=== PATIENT | male | born 1965 | race Caucasian/White ===

== ENCOUNTER 2020-05-24 17:10 | Outpatient (REF) | payer OTHER, SELFPAY ==
[2020-05-24 17:33] LABS: COVID-19 Test Positive (Negative); IDNOW Serial# 55D5AD1C
== END 2020-05-24 17:11 | disposition home or self-care (01) ==
LOC: HO.LAB 17:10
PROVIDERS: Visit Provider Internal Medicine
DX: Z20.828 Contact with and (suspected) exposure to other viral communicable diseases (principal)
CPT/HCPCS: 87635; C9803

== ENCOUNTER 2020-07-23 08:21 | Emergency (ER) | payer OTHER, SELFPAY ==
--- NOTE | 2020-07-23 08:30 | ED_ITS ---
HPI - Dental/Oral General Chief complaint: Dental/Oral Stated complaint: DENTAL PAIN Time Seen by Provider: 07/23/20 08:29 Source: patient Mode of arrival: ambulatory Limitations: no limitations History of Present Illness HPI Narrative: Left lower dental pain x 3 days. Called dentist and has appt tomorrow 8am. Thinks he cracked his tooth or filling. Denies erythema, swelling, fevers, chills. Using motrin and oragel with continued pain MD Complaint: tooth pain Related Data Previous Rx's Medication Instructions Recorded oxycodone 5 mg PO Q4H PRN #6 tab 07/23/20 Allergies Allergy/AdvReac Type Severity Reaction Status Date / Time penicillin V Allergy Unknown anaphylaxis, Verified 07/23/20 08:40 swelling Penicillins [PENICILLINS] Allergy Unknown SWELLING Unverified 02/17/20 14:47 Review of Systems Review of Systems: Yes all other systems are reviewed and are negative Constitutional: Constitutional: Reports no additional constitutional complaints, Denies body ache(s), Denies chills, Denies fever(s), Denies headache(s) and Denies weakness Eyes: Eyes: Reports no additional eye complaints and Denies change in vision ENT: Reports system reviewed and no additional complaints, except as documented, Reports dental pain, Denies dizziness, Denies headache(s), Denies nasal congestion, Denies nasal discharge and Denies neck pain Cardiovascular: Cardiovascular: Reports no additional cardiovascular compl aints, Denies chest pain, Denies leg edema and Denies dyspnea Respiratory: Respiratory: Reports no additional respiratory complaints, Denies cough and Denies dyspnea Gastrointestinal: Gastrointestinal: Reports no additional gastrointestinal complaints, Denies abdominal pain, Denies diarrhea, Denies nausea and Denies vomiting Genitourinary: Genitourinary: Denies urinary incontinence Musculoskeletal: Musculoskeletal: Reports no additional musculoskeletal complaints, Denies back pain, Denies arthralgias, Denies joint swelling, Denies neck pain, Denies numbness and Denies tingling Integumentary/Breasts: Skin/Breast: Reports system reviewed and no additional complaints, except as docu and Denies rash Neurologic: Reports system reviewed and no additional complaints, except as documented, Denies Abnormal speech present, Denies dizziness, Denies headache(s), Denies numbness, Denies tingling and Denies weakness [facility] Past Medical History Attestation statement: The following information was validated with the patient. Source: old records reviewed and nursing notes reviewed Social History Social History Advance Directives: No Advance Directives Information Provided: No Physical Exam Vital Signs: Vital Signs: Last Vital Signs Temp 98.0 F 07/23/20 08:38 Pulse 74 07/23/20 08:38 Resp 18 07/23/20 08:38 BP 168/91 H 07/23/20 08:38 Pulse Ox 97 07/23/20 08:38 Body Mass Index 36.2 Const: General: cooperative, healthy appearing, comfortable and no acute distress Orientation/consciousness: patient oriented x3 Limitations: no limitations HENMT: Head: Yes normal to inspection Ears: hearing grossly normal bilaterally General nose exam: Normal external nose present Face and sinus: Yes normal facial exam Mouth: Normal oral and palatal mucosa present Teeth image: 1. extensive caries with no surrounding fluctuance/erythema or swelling Throat: Yes posterior oropharynx normal Eyes: General: appearance normal, both eyes and all related structures Pupils: Equal, round and reactive pupils present Neck: Neck: Yes normal visual inspection Chest: Chest palpation & inspection: normal inspection of the chest Resp: Effort & Inspection: normal respiratory effort Auscultation: clear to auscultation bilaterally Cardio: Rate: regular rate Rhythm: regular rhythm Peripheral pulses: Peripheral pulses 2+ throughout GI: Inspection: Yes normal to inspection Palpation (GI): Soft to palpation and nontender Auscultation: normal bowel sounds Back/Spine/Pelvis: Thoracic/Lumbar Spine: thoracic and lumbar spine normal to inspection Skin: General skin exam: no rashes or lesions noted Neuro: General: patient oriented x3, no focal motor deficits and normal sensation to monofilament Cranial nerves: Yes Equal, round and reactive pupils present Cognition (Neuro): normal cognition Speech: No Abnormal speech present Gait exam (Neuro): Normal gait present Motor exam (neuro): 5/5 motor strength present throughout Extrem: General: Yes normal to inspection Course Course Course Narrative: 55 yo male here with dental pain with extensive caries, no abscess noted. Has appt with dental tomorrow. Will give small supply of oxycodone. Reviewed worrisome signs/symptoms with patient and when to return to ED. Comfortable with discharge home. Discharge Plan Discharge Clinical Impression: Toothache Patient Disposition: Home, Self-Care Instructions: Toothache (ED) Additional Instructions: Continue ibuprofen and topical oragel Keep appt with dentist tomorrow Prescriptions: New oxycodone 5 mg tablet 5 mg PO Q4H PRN (Reason: pain) Qty: 6 RF: 0 Referrals: Jasmeet Mariano FNP-LAW [Primary Care Provider] - 2 days Interventions: ED Discharge Assessment Last Done: 07/23/20 08:51 Discharge Date/Time: 07/23/20 08:52
[2020-07-23 08:38] VITALS: BP 168/91; PULSE 74; RESP 18; TEMP 36.7; O2SAT 97; BMI 36.2
== END 2020-07-23 08:52 | disposition home or self-care (01) ==
PROVIDERS: Emergency Provider Emergency Medicine; PCP Nurse Practitioner Family
DX: K08.89 Other specified disorders of teeth and supporting structures (principal); Z79.899 Other long term (current) drug therapy
CPT/HCPCS: 99283

== ENCOUNTER 2020-11-07 10:21 | Outpatient (REF) | payer OTHER, SELFPAY ==
[2020-11-07 11:44] LABS: Glucose Urine UA NEG (NEG); Leukocyte Esterase Urine NEG (NEG); Nitrite Urine NEG (NEG); PH 5.5 (5.0-8.0); Specific Gravity - Urine 1.025 (1.005-1.025); Urine Blood NEG (NEG); Urine Ketones NEG (NEG); Urine Protein NEG (NEG-TRACE)
[2020-11-07 11:52] LABS: Appearance Urine CLEAR; Color Urine YELLOW
[2020-11-07 12:17] LABS: RBC Urine 0-2 /HPF (0); Squamous Epithelial Cell Urine 1+ /LPF; WBC Urine 0 /HPF (0-4)
[2020-11-07 12:28] LABS: TSH reflex Free T4 0.69 uIU/mL (0.32-4.0)
[2020-11-07 12:50] LABS: Alanine Aminotransferase 12 U/L (0-40); Albumin Level 3.9 g/dL (3.5-5.0); Alkaline Phosphatase 94 U/L (39-117); Anion Gap 11 (12-20); Aspartate Amino Transferase 13 U/L (5-37); Bilirubin Total 0.8 mg/dL (0.0-1.0); Blood Urea Nitrogen 17 mg/dL (9-16); Calcium 9.2 mg/dL (8.4-10.2); Carbon Dioxide 26 mmol/L (22-29); Chloride 109 mmol/L (96-108); Cholesterol 209 mg/dL; Estimated Glomerular Filt Rate > 60; Glucose Fasting 96 mg/dL (60-99); HDL Cholesterol 40 mg/dL; LDL Cholesterol Calculated 148 mg/dl; Potassium 4.8 mmol/L (3.3-5.1); Sodium 141 mmol/L (135-145); Total Protein 6.2 g/dL (6.5-8.0); Triglycerides 105 mg/dL
[2020-11-08 07:35] LABS: SARS COV2 IgG Positive (Negative)
== END 2020-11-07 10:22 | disposition home or self-care (01) ==
LOC: HO.HMGCLDS 10:21
PROVIDERS: PCP Nurse Practitioner Family; Visit Provider Nurse Practitioner Family
DX: Z00.00 Encounter for general adult medical examination without abnormal findings (principal); Z12.5 Encounter for screening for malignant neoplasm of prostate; Z11.52 Encounter for screening for COVID-19
CPT/HCPCS: 36415; 80053; 80061; 81001; 84153; 84443; 86769

== ENCOUNTER 2022-01-30 06:11 | Day surgery (SDC) | payer OTHER, SELFPAY ==
[2022-01-24 11:30] VITALS: BMI 39.6
--- NOTE | 2022-01-29 13:41 | HO.ANESPROP2 ---
HPI - Anesthesia Eval Consult details Narrative: 56yo M for Hernia Repair Umbilical with mesh PMFSH Active Problems Active Problems: All Active Problems (Updated 11/08/21 @ 09:46 by Jasmeet Mariano [facility]) Physical exam (Acute) Screening PSA (prostate specific antigen) (Acute) Encounter for screening for COVID-19 (Acute) Umbilical hernia (Acute) Past Medical History Medical History (Updated 02/07/22 @ 09:41 by Jasmeet Aguirre MD) Arthritis of left knee Hypertension Impacted cerumen of both ears Surgical History Surgical History H/O medial meniscus repair of right knee H/O umbilical hernia repair (01/30/22) History of Achilles tendon repair History of arthroplasty of left ankle History of hand surgery History of medial meniscus repair of left knee History of tonsillectomy Social History Social History Housing: House Alcohol intake: current Alcohol intake frequency: holidays/special occasions only Patient Tobacco Use Status: Never used Tobacco e-Cigarette/Vaping Use: Never Used Second Hand Smoke Exposure: No service: Yes Current occupational status: employed Current occupation: [employer] Current occupational exposures/hazards: Yes Cognitive needs: No Hearing needs: No Vision needs: No Meds Allergies Allergy/AdvReac Type Severity Reaction Status Date / Time penicillin V Allergy Severe anaphylaxis, Verified 02/07/22 09:08 swelling Exam Exam Date and Time: January 29, 2022 1341 Height,Weight and Vital Signs: Height 6 ft 3 in Weight 143.789 kg Assessment and Plan Assessment Anesthesia Assessment: Chart Reviewed
[2022-01-30] VITALS (8 sets, daily range): BP systolic 104–146; BP diastolic 49–91; PULSE 74–85; RESP 12–16; TEMP 36.1–36.4; O2SAT 94–97; BMI 37.5
[2022-01-30] MEDS: Lactated Ringers 1,000 ML 100 ML IVCONT (06:52)
--- NOTE | 2022-01-30 07:08 | HO.ANESPROP2 ---
[facility] Active Problems Active Problems: All Active Problems (Updated 11/08/21 @ 09:46 by Jasmeet Mariano, [facility]) Physical exam (Acute) Screening PSA (prostate specific antigen) (Acute) Encounter for screening for COVID-19 (Acute) Umbilical hernia (Acute) Past Medical History Medical History Arthritis of left knee Hypertension Impacted cerumen of both ears Family History Family history of problems with anesthesia: No Surgical History Surgical History H/O medial meniscus repair of right knee History of Achilles tendon repair History of arthroplasty of left ankle History of hand surgery History of medial meniscus repair of left knee History of tonsillectomy History of Problems with Anesthesia: No Social History Social History Housing: House Alcohol intake: current Alcohol intake frequency: holidays/special occasions only Patient Tobacco Use Status: Never used Tobacco e-Cigarette/Vaping Use: Never Used Second Hand Smoke Exposure: No Use of substances other than those prescribed or required for medical reasons: No Are you DNR?: No Advance Directives: No Advance Directives Information Provided: Yes service: Yes Current occupational status: employed Current occupation: [employer] Current occupational exposures/hazards: Yes Cognitive needs: No Hearing needs: No Vision needs: No Meds Allergies Allergy/AdvReac Type Severity Reaction Status Date / Time penicillin V Allergy Severe anaphylaxis, Verified 01/24/22 10:53 swelling Active Medications: Current Medications Lactated Ringer's (Lr) 1,000 mls @ 100 mls/hr IVCONT .Q10H REPLACED BY [facility] Last Admin: 01/30/22 06:52 Dose: 100 mls/hr Vancomycin HCl (Vancomycin/Ns) 2,000 mg in 520 mls @ 260 mls/hr IV PREOP ONE Stop: 01/30/22 08:32 Last Admin: 01/30/22 06:55 Dose: 260 mls/hr Pharmacy Consult (Consult Rx Vancomycin Dosing) 1 each MISCELLANE DAILY PRN PRN Reason: Consult order Exam Exam Date and Time: January 30, 2022 0708 Height,Weight and Vital Signs: Height 6 ft 3 in Weight 136.078 kg Last Vital Signs Temp 97.5 F 01/30/22 06:35 Pulse 79 01/30/22 06:35 Resp 16 01/30/22 06:35 BP 146/91 H 01/30/22 06:35 Pulse Ox 95 01/30/22 06:35 O2 Del Method 01/30/22 06:35 Airway Mallampati Class: I TM Dist: >3cm Loose/Missing/Broken Teeth: No (Rrr) Lungs: clear Assessment and Plan Final Anesthetic Review Family History of Problems with Anesthesia: No History of Problems with Anesthesia: No NPO: Yes ASA Class: II Final Preanesthetic Review: No Changes in Pt Med Stat, Meds/Allgs Chart Reviewed, Consent Obtained/Reviewed and Anes Risks/Benef Reviewed Patient Risk: Intermediate Procedure Risk: Low Anesthetic Plan Anesthetic Plan: GA Disposition: Standard PACU
--- NOTE | 2022-01-30 07:14 | MHC.SHP ---
Pre-Procedural Eval Section A Date of Service: 01/30/22 The patient is an INPATIENT: No Changes since office visit: Yes Patient answered all questions; No Cold of Flu in the past 2 weeks, No New Medical Problems and No Changes in Medication The History & Physical has been completed within 30 days and I have reviewed it.: Yes Section B Chief Complaint: Umbilical hernia Details of Present Illness: 56-year-old male patient presenting with complaints of an umbilical hernia. 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 He does not feel that the objects were exceptionally heavy however following this he developed increased periumbilical pain. He noted increased pain with bending. He subsequently drove home and was planning on visiting the emergency department for further evaluation but by the time he returned home the pain had passed and the hernia reduced. He denies any further symptoms since this episode. He presents today to discuss possible repair of this umbilical hernia. He denies nausea, vomiting, fever, chills, diarrhea, or constipation. He denies a prior history of hernia surgery. Relevant Family History (Specify if Yes): No Relevant Social History: None Present Medications: see Short Stay Collaborative assessment Medical History: Significant History (HTN) History of Previous Operations: No relevant previous surgery Allergies: Allergies Allergy/AdvReac Type Severity Reaction Status Date / Time penicillin V Allergy Severe anaphylaxis, Verified 01/24/22 10:53 swelling Review of Systems Sugical H&P ROS: Negative: Constitution, Cardiovascular, Respiratory, Neurological, Psychiatric, Hem-Onc, Allergic/Immunologic, Gastrointestinal, Genitourinary, Musculoskeletal, Integumentary, Endocrine and Eyes/Ears/Nose/Throat Exam Surgical H&P Exam: Normal: HEENT, Normal: Heart, Normal: Lungs, Normal: Extremities, Normal: Skin and Normal: Neurological and Significant Findings: Abdomen (Palpable, reducible umbilical hernia, non-tender) Plan Diagnosis/Plan: Unchanged I have reviewed the history and physical and performed a pertinent physical examination on my patient. No changes have occurred unless specified.
--- NOTE | 2022-01-30 08:52 | W.PM.OPN ---
Operative Note Operative Note Date of Service: 01/30/22 Narrative: Preoperative diagnosis: Umbilical hernia Postoperative diagnosis: same Procedure: repair of umbilical hernia with mesh Surgeon: Jasmeet Aguirre MD Sales Executive: ROSY Au Anesthesia: general endotracheal Indications for procedure: 56-year-old male patient presenting with a painful umbilical hernia which is increasing in size with lifting and straining. On examination there is a non reducible umbilical hernia with a defect measuring approximately 3 cm. Operative findings: Umbilical hernia containing incarcerated preperitoneal. Specimen: Hernia sac Estimated blood loss: 5 mL Complications: none Procedure details: patient was brought to the OR placed in a supine position. After administering general anesthesia the patient's abdomen was prepped with ChloraPrep and draped in a sterile fashion. A surgical time-out was called the consent confirmed. Patient received preoperative antibiotics and Venodyne boots were in place. Local anesthesia consisting of 0.5% Sensorcaine was infiltrated along the inferior surface of the umbilicus in a transverse fashion. Incision was then made same location carried out through subcutaneous tissue to the hernia sac. The hernia sac was then dissected down to the fascial edge. Umbilical skin was dissected off the hernia sac the umbilicus lifted off the fascia. The sac was then dissected circumferentially down to the fascial edge. The sac was then reduced into the abdominal cavity. A preperitoneal space was then created using electrocautery. A 6.4 cm round Ventralex mesh was then obtained. This was deployed into the preperitoneal space and secured in 4 quadrants using 1 Tycron sutures. The fascia was then closed over the mesh using [id number] 1 Tycron sutures. Approximately 2 mL of Zenrelef was placed within the preperitoneal space prior to complete closure of the fascia. An additional 2 mL of Zenrelef was then applied over the fascia. Umbilical skin was secured to the fascia using a 3-0 Polysorb suture. Dermis was reapproximated using interrupted 3-0 Polysorb sutures. Skin was then closed using a running subcuticular 4-0 Polysorb suture. Steri-Strips 2 x 2 gauze and Tegaderm were then applied. The patient tolerated the procedure well. Sponge, instrument, and needle counts reported as correct. The patient was transferred to PACU in stable condition.
[2022-01-30] MEDS: Acetaminophen 325 MG TABLET 650 MG PO (09:44)
== END 2022-01-30 10:22 | disposition home or self-care (01) ==
PROVIDERS: PCP Nurse Practitioner Family; Visit Provider Surgery
PROC: (CPT 49585; principal; 2022-01-30 07:30)
DX: K42.9 Umbilical hernia without obstruction or gangrene (principal); I10 Essential (primary) hypertension; Z79.899 Other long term (current) drug therapy; Z88.0 Allergy status to penicillin; Z98.890 Other specified postprocedural states
CPT/HCPCS: 49585; 88302; C1781; C9088; J0330; J1100; J2250; J2405; J2795; J3010; J3370

== ENCOUNTER 2022-06-28 16:54 | Outpatient (REF) | payer OTHER, SELFPAY ==
--- NOTE | ~2022-06-28 | XR_ITS ---
EXAMINATION: XR KNEE, RIGHT XR KNEE STANDING, BILATERAL CLINICAL INFORMATION: Pain. COMPARISON: AP bilateral knee and right knee 01/20/2018 TECHNIQUE: AP bilateral knee standing and right knee 2 views. FINDINGS: BILATERAL KNEE, STANDING: There is mild reduction in the medial and lateral compartment joint space of both knees with chondrocalcinosis bilaterally. No bony erosive changes seen. There is mild degenerative spurring of the lateral and medial compartment right knee. RIGHT KNEE: There is moderate reduction in the patellofemoral compartment joint space with inferior patellar spurring. No abnormal joint effusion seen. Suspect loose body and a moderate-sized enthesophyte anterior to the articulating femoral condyle in the lateral view. This was not seen on the previous study. XR/XR knee standing BI IMPRESSION: 1. Degenerative arthritic changes medial and lateral compartment right knee with chondrocalcinosis. 2. Moderate degenerative changes patellofemoral compartment left knee with inferior patellar spurring. 3. Suspect large loose body in the left knee. No acute fracture or dislocation seen. 4. No joint effusion seen in either knee on the AP standing view.
--- NOTE | ~2022-06-28 | XR_ITS ---
EXAMINATION: XR KNEE, RIGHT XR KNEE STANDING, BILATERAL CLINICAL INFORMATION: Pain. COMPARISON: AP bilateral knee and right knee 01/20/2018 TECHNIQUE: AP bilateral knee standing and right knee 2 views. FINDINGS: BILATERAL KNEE, STANDING: There is mild reduction in the medial and lateral compartment joint space of both knees with chondrocalcinosis bilaterally. No bony erosive changes seen. There is mild degenerative spurring of the lateral and medial compartment right knee. RIGHT KNEE: There is moderate reduction in the patellofemoral compartment joint space with inferior patellar spurring. No abnormal joint effusion seen. Suspect loose body and a moderate-sized enthesophyte anterior to the articulating femoral condyle in the lateral view. This was not seen on the previous study. XR/XR knee RT 2V IMPRESSION: 1. Degenerative arthritic changes medial and lateral compartment right knee with chondrocalcinosis. 2. Moderate degenerative changes patellofemoral compartment left knee with inferior patellar spurring. 3. Suspect large loose body in the left knee. No acute fracture or dislocation seen. 4. No joint effusion seen in either knee on the AP standing view.
== END 2022-06-28 16:55 | disposition home or self-care (01) ==
LOC: HO.HOSX 16:54
PROVIDERS: Visit Provider Orthopaedic Surgery
DX: M17.11 Unilateral primary osteoarthritis, right knee (principal)
CPT/HCPCS: 20610; 73560; 73565; J1100

== ENCOUNTER 2022-12-24 08:04 | Outpatient (AMB) | payer OTHER, SELFPAY ==
--- NOTE | 2022-12-24 08:07 | AM.OFFWIN_ITS ---
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 Patient Tobacco Use Status: Never used Tobacco Allergies penicillin V Allergy (Severe, Verified 12/24/22 08:08) anaphylaxis, swelling Do you need a note to return to daycare/school/sports/work: No HPI HPI Comments History of Present Illness Details 57-year-old male presents with bilateral cerumen impaction. States that the right is worse than the left. He does not report any other medical concerns at this time. [facility] Medical History (Updated 12/24/22 @ 08:21 by Catarina Parker NP) Arthritis of left knee Hypertension Impacted cerumen of both ears Surgical History H/O medial meniscus repair of right knee H/O umbilical hernia repair (01/30/22) History of Achilles tendon repair History of arthroplasty of left ankle History of hand surgery History of medial meniscus repair of left knee History of tonsillectomy Social History Housing: House Alcohol intake: current Alcohol intake frequency: holidays/special occasions only Patient Tobacco Use Status: Never used Tobacco e-Cigarette/Vaping Use: Never Used Second Hand Smoke Exposure: No service: Yes Current occupational status: employed Current occupation: [employer] Current occupational exposures/hazards: Yes Cognitive needs: No Hearing needs: No Vision needs: No Review of Systems Const Details: Constitutional: No Fever, No Chills ENT/Mouth: Bilateral cerumen impaction, No Hoarseness, No sore throat Cardiovascular: No Chest Pain, No SOB Respiratory: No Cough, No Dyspnea Skin: No Skin lacerations, No rash Neuro: No Dizziness, No Headache All systems reviewed & are unremarkable except as noted in HPI and below Physical Exam Vital Signs: Last Vital Signs Pulse 80 12/24/22 08:08 BP 130/76 12/24/22 08:08 Pulse Ox 98 12/24/22 08:08 Oxygen Delivery Method Room Air 12/24/22 08:08 Appearance: Alert. Oriented X3. No acute distress. Eyes: Pupils equal, round and reactive to light. ENT: Bilateral cerumen impaction. Neck: Normal inspection. Neck supple. CVS: Normal heart rate and rhythm. Pulses normal. Respiratory: No respiratory distress. Breath sounds normal. Extremities: Gait balance and coordinated. Neuro: No motor deficit. No sensory deficit. Cranial nerves 2-12 intact. Assessment & Plan Assessment & Plan (1) Impacted cerumen of both ears: Code(s): H61.23 - Impacted cerumen, bilateral Plan 57-year-old male presents with bilateral cerumen impaction. He has no other medical concerns. Bilateral ears irrigated by MA. Cerumen disimpaction successful. Tympanic membranes bilaterally intact. Plan is to have patient use Debrox drops [id number] to help reduce recurrence of cerumen impaction. Patient verbalized understanding of discharge instructions. Verbalized understandings of signs and symptoms indicating need for emergent intervention. Patient Instructions: You were evaluated for bilateral cerumen impaction. We were able to successfully remove the earwax. Consider using Debrox drops as directed. This medication can be purchased ov [id number]. Thank you for choosing this urgent care for evaluation. Please follow-up with primary care physician as needed. Return to the emergency department for any new, concerning, or worsening symptoms. Coding Level of Care Code Est Pt Level 3 (25220) Diagnoses Impacted cerumen of both ears H61.23
[2022-12-24 08:08] VITALS: BP 130/76; PULSE 80; O2SAT 98
== END 2022-12-24 09:31 | disposition home or self-care (01) ==
PROVIDERS: PCP Nurse Practitioner Family; Visit Provider Nurse Practitioner Family
DX: H61.23 Impacted cerumen, bilateral (principal)
CPT/HCPCS: 99213

== ENCOUNTER 2023-04-03 13:20 | Outpatient (AMB) | payer OTHER, SELFPAY ==
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
[2023-04-03 13:38] VITALS: BP 108/64; PULSE 77; O2SAT 97
== END 2023-04-03 14:15 | disposition home or self-care (01) ==
PROVIDERS: PCP Nurse Practitioner Family; Visit Provider Nurse Practitioner Family
DX: Z00.00 Encounter for general adult medical examination without abnormal findings (principal); Z12.5 Encounter for screening for malignant neoplasm of prostate; Z12.11 Encounter for screening for malignant neoplasm of colon; R05.3 Chronic cough
CPT/HCPCS: 99396

== ENCOUNTER 2023-04-21 14:53 | Outpatient (AMB) | payer OTHER, SELFPAY ==
--- NOTE | 2023-04-21 14:55 | A.OFFVIS_ITS ---
Intake Intake Visit Reasons: OV-right knee injection-last injection 06/28/22 Intake Note: Maciel is a 57 year old male who presents today for a follow up of his right knee. Last injection done 06/28/22. Patient reports that this injection was helpful until about a week ago. Allergies penicillin V Allergy (Severe, Verified 04/21/23 14:59) anaphylaxis, swelling HPI OV-right knee injection-last injection 06/28/22 HPI Details Maciel is a 57 year old man who returns with complaints of right knee OA pain. He has a Hx of right knee , DOS: 04/08/18, which he recovered well from. He was last seen, and injected, on 06/28/22, with good relief. He says his pain began to return ~1 week ago and he would like a repeat injections. When his pain returned, along with swelling, he has felt his knee begin to give way on him again recently. [facility] Medical History (Updated 04/21/23 @ 15:19 by Maldonado Baca) Impacted cerumen of both ears Arthritis of left knee Hypertension Surgical History H/O umbilical hernia repair (01/30/22) History of Achilles tendon repair History of medial meniscus repair of left knee History of tonsillectomy History of arthroplasty of left ankle History of hand surgery H/O medial meniscus repair of right knee Housing: House Alcohol intake: current Alcohol intake frequency: holidays/special occasions only Patient Tobacco Use Status: Never used Tobacco e-Cigarette/Vaping Use: Never Used Second Hand Smoke Exposure: No service: Yes Current occupational status: employed Current occupation: [employer] Current occupational exposures/hazards: Yes Cognitive needs: No Hearing needs: No Vision needs: No Review of Systems Const All systems reviewed & are unremarkable except as noted in HPI and below Physical Exam Const General: no acute distress, alert and awake Orientation/consciousness: patient oriented x3 HEENT Head: Yes normocephalic and Yes atraumatic Eyes EOM: EOMs intact bilaterally Resp Effort & Inspection: normal respiratory effort and able to speak in complete sentences Cardio Jugular venous distension: no JVD Skin General skin exam: turgor normal Rashes: no rashes Neuro General: patient oriented x3 Extrem Other: Right Knee: Mild effusion Medial TTP Psych Appearance: grossly normal Affect: normal affect Attitude: cooperative Office Procedures Joint Injection/Drain Joint Injection/Drain Details: Injected 1 mL of Decadron and 3 mL 1% lidocaine and 3 mL of 0.25% Marcaine. Site was prepped using aseptic technique. Patient tolerated the procedure well. Primary Site: right knee Approach Used: anterolateral Coding - Large joint Procedure code (CPT) selection complete Results Reviewed Results Reviewed: I personally reviewed relevant radiographs. 1. Degenerative arthritic changes medial and lateral compartment right knee with chondrocalcinosis. 2. Moderate degenerative changes patellofemoral compartment left knee with inferior patellar spurring. 3. Suspect large loose body in the left knee. No acute fracture or dislocation seen. 4. No joint effusion seen in either knee on the AP standing view. Assessment & Plan Assessment & Plan (1) Osteoarthritis of right knee: Code(s): M17.11 - Unilateral primary osteoarthritis, right knee Plan: This is a 57 year old man with right knee OA with mild effusion, with a Hx of knee , DOS: 04/08/18. He has pain with weight-bearing activities, along with some instability, and a hx of good relief from a past steroid injection. I discussed his diagnosis and treatment options. He is not a surgical candidate at this time and is able to engage in daily activity comfortably. I injected his right knee today, which he tolerated well, and recommend he remain active as tolerated. He can follow up prn. (2) Effusion, right knee: Code(s): M25.461 - Effusion, right knee Plan: Mild Plan Scribed for James Lazo MD by Maldonado Baca medical and scientific illustrator, on 04/21/23 at 3:20 PM, EST. Coding Level of Care Code Est Pt Level 3 (99477) Diagnoses Osteoarthritis of right knee M17.11 Effusion, right knee M25.461 CPT Codes Coding - Large joint: 36555 - Large joint ([id number])
== END 2023-04-21 15:48 | disposition home or self-care (01) ==
PROVIDERS: PCP Nurse Practitioner Family; Visit Provider Orthopaedic Surgery
DX: M17.11 Unilateral primary osteoarthritis, right knee (principal); M25.461 Effusion, right knee
CPT/HCPCS: 20610; 99213

== ENCOUNTER → 2023-04-21 14:53 | Outpatient (BNVA) | payer OTHER, SELFPAY | PROVIDERS: PCP Nurse Practitioner Family; Visit Provider Orthopaedic Surgery | DX: M17.11 Unilateral primary osteoarthritis, right knee (principal); M25.461 Effusion, right knee | CPT/HCPCS: 20610; J0665; J1100 ==

== ENCOUNTER → 2023-05-01 09:55 | Outpatient (BNVA) | payer OTHER, SELFPAY | PROVIDERS: PCP Nurse Practitioner Family; Visit Provider Orthopaedic Surgery ==

== ENCOUNTER 2023-05-01 10:28 | Outpatient (AMB) | payer OTHER, SELFPAY ==
--- NOTE | 2023-05-01 10:15 | A.OFFVIS_ITS ---
Intake Intake Visit Reasons: OV-right knee injection-last injection 06/28/22 Intake Note: Maciel is a 57 year old male who presents today for a follow up of his right knee 04/21/23. Last injection was done. He reports that the injection was helpful but not for. Hx Rt Knee 04/08/18 Allergies penicillin V Allergy (Severe, Verified 05/29/23 15:37) anaphylaxis, swelling HPI OV-right knee injection-last injection 06/28/22 HPI Details Maciel is a 57 year old man who returns with complaints of right knee OA pain. He has a Hx of right knee , DOS: 04/08/18, which he recovered well from. [facility] Medical History Impacted cerumen of both ears Arthritis of left knee Hypertension Surgical History H/O colonoscopy History of esophagogastroduodenoscopy (EGD) H/O umbilical hernia repair (01/30/22) History of Achilles tendon repair History of medial meniscus repair of left knee History of tonsillectomy History of arthroplasty of left ankle History of hand surgery H/O medial meniscus repair of right knee Social History Housing: House Alcohol intake: current Alcohol intake frequency: holidays/special occasions only Patient Tobacco Use Status: Never used Tobacco e-Cigarette/Vaping Use: Never Used Second Hand Smoke Exposure: No service: Yes Current occupational status: employed Current occupation: [employer] Current occupational exposures/hazards: Yes Cognitive needs: No Hearing needs: No Vision needs: No Physical Exam Const General: no acute distress, alert and awake Orientation/consciousness: patient oriented x3 HEENT Head: Yes normocephalic and Yes atraumatic Eyes EOM: EOMs intact bilaterally Resp Effort & Inspection: normal respiratory effort and able to speak in complete sentences Cardio Jugular venous distension: no JVD Skin General skin exam: turgor normal Rashes: no rashes Neuro General: patient oriented x3 Extrem Other: Right Knee: Mild effusion Medial TTP Psych Appearance: grossly normal Affect: normal affect Attitude: cooperative Assessment & Plan Assessment & Plan (1) Osteoarthritis of right knee: Code(s): M17.11 - Unilateral primary osteoarthritis, right knee Plan: This is a 57 year old man with right knee OA with mild effusion, with a Hx of knee , DOS: 04/08/18. He has pain with weight-bearing activities, along with some instability, and mild relief from his steroid injection on 04/21/23. I discussed his diagnosis and treatment options. We subha lproceed forward with viscosupplementation at this point. (2) Effusion, right knee: Code(s): M25.461 - Effusion, right knee Plan: Mild Coding Level of Care Code Est Pt Level 3 (32663) Diagnoses Osteoarthritis of right knee M17.11 Effusion, right knee M25.461
== END 2023-05-01 11:17 | disposition home or self-care (01) ==
PROVIDERS: PCP Nurse Practitioner Family; Visit Provider Orthopaedic Surgery
DX: M17.11 Unilateral primary osteoarthritis, right knee (principal); M25.461 Effusion, right knee
CPT/HCPCS: 99213

== ENCOUNTER 2023-05-02 21:51 | Emergency (ER) | payer OTHER, SELFPAY ==
--- NOTE | ~2023-05-02 | CT_ITS ---
EXAMINATION: CT PELVIS WITHOUT CONTRAST CLINICAL INFORMATION: Left groin pain. COMPARISON: None available. TECHNIQUE: Helical scanning was performed with submillimeter collimation through the pelvis. Sagittal and coronal multiplanar 2-D reconstructions were obtained. This CT examination was performed using dose optimization techniques as appropriate, variously including the following: *Automated exposure control *Adjustment of mA and/or kV according to patient size (this includes techniques or standardized protocols for targeted exams where dose is matched to indication/reason for exam; i.e. extremities or head) *Use of iterative reconstruction technique DLP: 908 mGy-cm FINDINGS: Limited noncontrast examination. Small fat-containing bilateral inguinal hernias. Bilateral vasectomy clips. Suggestion of engorged vasculature in the left greater than right scrotal sacs. No significant collection, hematoma or mass in the left groin. Colonic diverticulosis without significant pericolonic fat stranding nor free fluid in included portions of the bowel to suspect acute diverticulitis. Normal appendix. Mild urinary bladder wall diverticulum and thickening without significant perivesical fat stranding, no intraluminal calculi. Normal appearance of the prostate gland. No pelvic lymphadenopathy. No free fluid. Scattered atherosclerotic disease. No acute or aggressive appearing osseous findings. Degenerative changes of the spine with chronic grade 1 anterolisthesis of L5 on S1. Moderate degenerative osteoarthritis in the hips with bilateral os acetabuli. CT/CT pelvis wo IV con IMPRESSION: 1. Small fat-containing bilateral inguinal hernias. 2. Engorged vasculature in the left greater than right scrotal sacs that could be seen with varicoceles, suboptimally assessed in this noncontrast examination. Further evaluation with ultrasound could be obtained as clinically warranted. 3. Diverticulosis but no evidence of acute diverticulitis. 4. Subtle urinary bladder wall trabeculation with equivocal mild wall thickening, recommend clinical correlation for outlet obstruction and cystitis.
[2023-05-02 22:09] VITALS: BP 164/78; PULSE 80; RESP 18; TEMP 36.7; O2SAT 98; BMI 35.1
--- NOTE | 2023-05-02 22:18 | PC.NURSE ---
Noticed Harpal Lawrence of pt increase groin pain and charge nurse Marimar
[2023-05-02 22:25] LABS: Hematocrit 38.8 % (42.0-52.0); Hemoglobin 12.8 g/dl (14.0-18.0); Mean Corpuscular Hemoglobin 29.8 pg (27.0-33.0); Mean Corpuscular Volume 90.2 fL (80.0-98.0); Mean Platelet Volume 10.1 fL (9.4-12.4); Platelet Count 284 X10*3/uL (160-400); Red Cell Distribution Width 12.5 % (11.0-16.0); White Blood Count 10.8 X10*3/uL (4.8-10.8)
--- NOTE | 2023-05-02 22:35 | ED.GENADULT ---
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 with pain in right knee somehow twisted his left groin since having pain in the left groin area which got worse since yesterday no fever no rash no scrotal or testicular pain no history of hernia no abdominal pain no urinary complaints pain gets worse when patient ambulates Related Data Previous Rx's Medication Instructions Recorded betamethasone dipropionate 0.05 % 1 appl topical DAILY PRN skin 11/11/20 topical cream irritation 30 days #15 grams lisinopril 10 mg tablet 10 mg PO DAILY 90 days #90 tabs 10/03/22 hydrochlorothiazide 12.5 mg tablet 12.5 mg PO DAILY 90 days #90 tabs 11/04/22 cyclobenzaprine 10 mg tablet 10 mg PO Q8H #20 tabs 05/03/23 ibuprofen 600 mg tablet 600 mg PO Q6H PRN fever or pain 05/03/23 #30 tabs morphine 15 mg immediate release 15 mg PO Q8H PRN pain #15 tabs 05/03/23 tablet Allergies Allergy/AdvReac Type Severity Reaction Status Date / Time penicillin V Allergy Severe anaphylaxis, Verified 04/21/23 14:59 swelling Review of Systems Review of Systems: Yes all other systems are reviewed and are negative PMFSH Past Medical History Medical History Impacted cerumen of both ears Arthritis of left knee Hypertension Surgical History H/O umbilical hernia repair (01/30/22) History of Achilles tendon repair History of medial meniscus repair of left knee History of tonsillectomy History of arthroplasty of left ankle History of hand surgery H/O medial meniscus repair of right knee Social History Social History Housing: House Alcohol intake: current Alcohol intake frequency: holidays/special occasions only Patient Tobacco Use Status: Never used Tobacco Smoked in Last 30 Days: No e-Cigarette/Vaping Use: Never Used Second Hand Smoke Exposure: No Use of substances other than those prescribed or required for medical reasons: No Advance Directives: No Advance Directives Information Provided: No service: Yes Current occupational status: employed Current occupation: [employer] Current occupational exposures/hazards: Yes Cognitive needs: No Hearing needs: No Vision needs: No Physical Exam ED Vital Signs: Vital Signs - 24 hr 05/02/23 22:09 05/02/23 23:15 Temperature 98.1 F 97.8 F Pulse Rate 80 67 Respiratory Rate 18 17 Blood Pressure 164/78 H 144/77 H Pulse Oximetry 98 95 Oxygen Delivery Method Room Air Room Air BMI result Body Mass Index 35.1 Appearance: Alert. Oriented X3. No acute distress. Neck: Normal inspection. Neck supple. CVS: Normal heart rate and rhythm. Pulses normal. Respiratory: No respiratory distress. Equal air entry bilateral, Abdomen: Soft and nontender. Bowel sounds are present, no mass palpable, no CVA tenderness Skin: Skin warm and dry. Normal skin color. Normal skin turgor. Extremities: No lower extremity edema. No calf tenderness tenderness in left adductor and psoas ms without any swelling pain increases on abduction and flexion of the left hip, neurovascular intact : Normal testicles normal alignment no hernia no hydrocele no epididymal pain Neuro: Oriented X 3. No motor deficit. No sensory deficit. Medications Administered Discontinued Medications Generic Name Dose Route Start Last Admin Trade Name Freq PRN Reason Stop Dose Admin Ketorolac Tromethamine 30 mg 05/03/23 00:04 05/03/23 00:25 Ketorolac Tromethamine 30 Mg/Ml Vial IVPUSH 05/03/23 00:05 30 mg ONCE ONE Administration Morphine Sulfate 4 mg 05/02/23 22:34 05/02/23 22:45 Morphine Sulfate 4 Mg/Ml Cartridge IVPUSH 05/02/23 22:35 4 mg ONCE ONE Administration Protocol Ondansetron HCl 4 mg 05/02/23 22:34 05/02/23 22:45 Ondansetron Hcl 4 Mg/2 Ml Vial IVPUSH 05/02/23 22:35 4 mg ONCE ONE Administration Medical Decision Making Medical Decision Making [facility] Narrative: Patient with left hip flexors pain likely source muscle strain CT scan negative for acute patient does not have any scrotal pain or testicular pain on standing Differential Diagnosis Differential Diagnoses: The differential diagnosis associated with the presentation includes Psoas muscle strain/hernia Lab Data MDM Lab Attestation statement: I reviewed the patient's lab results. 05/02/23 22:15 05/02/23 22:15 Labs: Lab Results 05/02/23 Range/Units 22:15 WBC 10.8 (4.8-10.8) X10*3/uL RBC 4.30 L (4.60-5.80) X10*6/uL Hgb 12.8 L (14.0-18.0) g/dl Hct 38.8 L (42.0-52.0) % MCV 90.2 (80.0-98.0) fL MCH 29.8 (27.0-33.0) pg MCHC 33.0 (31.0-36.0) g/dl RDW 12.5 (11.0-16.0) % Plt Count 284 (160-400) X10*3/uL MPV 10.1 (9.4-12.4) fL Absolute Nucleated RBC 0.000 (0.0-0.012) X10*3/uL Nucleated RBC % (auto) 0.0 (0.0-0.2) /100WBC Sodium 144 (135-145) mmol/L Potassium 4.0 (3.3-5.1) mmol/L Chloride 111 H (96-108) mmol/L Carbon Dioxide 25 (22-29) mmol/L Anion Gap 12 (12-20) BUN 18 H (9-16) mg/dL Creatinine 0.90 (0.5-1.4) mg/dL Estim Creat Clear Calc 133.3 Estimated GFR > 60 Random Glucose 96 (60-115) mg/dL Calcium 8.9 (8.4-10.2) mg/dL Total Bilirubin 0.4 (0.0-1.0) mg/dL AST 14 (5-37) U/L ALT 12 (0-40) U/L Alkaline Phosphatase 92 (39-117) U/L Total Protein 6.7 (6.5-8.0) g/dL Albumin 3.9 (3.5-5.0) g/dL Lipase 20 (8-78) U/L Independent Interpretation I performed an independent interpretation of an: CT Scan Radiology Impression Discussion of test interpretation with radiology: I have reviewed the radiologist's reading. Discharge Plan Discharge Clinical Impression: Strain of left groin Patient Disposition: Home, Self-Care Instructions: Groin Strain (ED) Additional Instructions: Rest to your left thigh, avoid going on stairs Pain medication and muscle relaxant as prescribed Follow with PCP if not better Prescriptions: New morphine 15 mg tablet 15 mg PO Q8H PRN (Reason: pain) Qty: 15 0RF Rx Instructions: Partial Fill upon patient request. cyclobenzaprine 10 mg tablet 10 mg PO Q8H Qty: 20 0RF ibuprofen 600 mg tablet 600 mg PO Q6H PRN (Reason: fever or pain) Qty: 30 0RF No Action betamethasone dipropionate 0.05 % cream 1 appl topical DAILY PRN (Reason: skin irritation) 30 Days Qty: 15 0RF lisinopril 10 mg tablet 10 mg PO DAILY 90 Days Qty: 90 1RF hydrochlorothiazide 12.5 mg tablet 12.5 mg PO DAILY 90 Days Qty: 90 1RF Stand Alone Forms: Work/School Release Interventions: ED Discharge Assessment Last Done: 05/03/23 00:59 Discharge Date/Time: 05/03/23 00:59
[2023-05-02 22:40] LABS: Alanine Aminotransferase 12 U/L (0-40); Albumin Level 3.9 g/dL (3.5-5.0); Alkaline Phosphatase 92 U/L (39-117); Anion Gap 12 (12-20); Aspartate Amino Transferase 14 U/L (5-37); Bilirubin Total 0.4 mg/dL (0.0-1.0); Blood Urea Nitrogen 18 mg/dL (9-16); Calcium 8.9 mg/dL (8.4-10.2); Carbon Dioxide 25 mmol/L (22-29); Chloride 111 mmol/L (96-108); Creatinine Clr Calc Pharmacy 133.3; Estimated Glomerular Filt Rate > 60; Glucose Random 96 mg/dL (60-115); Lipase 20 U/L (8-78); Sodium 144 mmol/L (135-145); Total Protein 6.7 g/dL (6.5-8.0)
[2023-05-02] MEDS: ondansetron HCL 4 MG/2 ML VIAL IVPUSH (22:45)
[2023-05-02] MEDS: Morphine Sulfate 4 MG/ML CARTRIDGE IVPUSH (22:45)
--- NOTE | 2023-05-02 22:49 | PC.NURSE ---
Iv placed, labs collect, medicated per jul, pt taken to Ct scan.
[2023-05-02 23:15] VITALS: BP 144/77; PULSE 67; RESP 17; TEMP 36.6; O2SAT 95
[2023-05-03] MEDS: Ketorolac Tromethamine 30 MG/ML VIAL IVPUSH (00:25)
== END 2023-05-03 00:59 | disposition home or self-care (01) ==
PROVIDERS: Emergency Provider Internal Medicine; PCP Nurse Practitioner Family
DX: S39.011A Strain of muscle, fascia and tendon of abdomen, initial encounter (principal); R10.2 Pelvic and perineal pain; X50.1XXA Overexertion from prolonged static or awkward postures, initial encounter; Y93.9 Activity, unspecified; Y92.9 Unspecified place or not applicable; Y99.9 Unspecified external cause status; Z79.899 Other long term (current) drug therapy
CPT/HCPCS: 36415; 72192; 80053; 83690; 85027; 96374; 96375; 99284; J1885; J2270; J2405

== ENCOUNTER 2023-05-05 14:26 | Outpatient (AMB) | payer OTHER, SELFPAY ==
--- NOTE | 2023-05-05 14:30 | MHC.OFFVIS ---
Intake Intake Visit Reasons: Right Knee Euflexxa #1 Intake Note: Maciel is a 57 year old male who presents today for right knee euflexxa #1 Allergies penicillin V Allergy (Severe, Verified 04/21/23 14:59) anaphylaxis, swelling HPI Right Knee Euflexxa #1 HPI Details Maciel is a 57 year old man who returns for a right knee Euflexxa injection. He has a Hx of right knee , DOS: 04/08/18, which he recovered well from, and a hx of mixed relief from steroid injections. He denies any changes to his symptoms or medical history. he does say he was recently seen in the ED for bad left-sided groin pain, on 05/02/23. He says they took a CT scan and he was told his pain was likely muscular in nature. He has been taking things easy since he developed this pain, which has helped somewhat. [facility] Medical History Impacted cerumen of both ears Arthritis of left knee Hypertension Surgical History H/O umbilical hernia repair (01/30/22) History of Achilles tendon repair History of medial meniscus repair of left knee History of tonsillectomy History of arthroplasty of left ankle History of hand surgery H/O medial meniscus repair of right knee Social History Housing: House Alcohol intake: current Alcohol intake frequency: holidays/special occasions only Patient Tobacco Use Status: Never used Tobacco e-Cigarette/Vaping Use: Never Used Second Hand Smoke Exposure: No service: Yes Current occupational status: employed Current occupation: [employer] Current occupational exposures/hazards: Yes Cognitive needs: No Hearing needs: No Vision needs: No Review of Systems Const All systems reviewed & are unremarkable except as noted in HPI and below Physical Exam Const General: no acute distress, alert and awake Orientation/consciousness: patient oriented x3 HEENT Head: Yes normocephalic and Yes atraumatic Eyes EOM: EOMs intact bilaterally Resp Effort & Inspection: normal respiratory effort and able to speak in complete sentences Cardio Jugular venous distension: no JVD Skin General skin exam: turgor normal Rashes: no rashes Neuro General: patient oriented x3 Extrem Other: skin clean and dry Psych Appearance: grossly normal Affect: normal affect Attitude: cooperative Office Procedures Joint Injection/Drain Joint Injection/Drain Details: Injected Euflexxa. Site was prepped using aseptic technique. Patient tolerated the procedure well. Primary Site: right knee Approach Used: anterolateral Coding 68224 - Large joint Procedure code (CPT) selection complete Results Reviewed Results Reviewed: I personally reviewed relevant radiographs & CT images 1. Degenerative arthritic changes medial and lateral compartment right knee with chondrocalcinosis. 2. Moderate degenerative changes patellofemoral compartment left knee with inferior patellar spurring. 3. Suspect large loose body in the left knee. No acute fracture or dislocation seen. 4. No joint effusion seen in either knee on the AP standing view. CT demonstrates moderate bilateral hip OA R>L Assessment & Plan Assessment & Plan (1) Osteoarthritis of right knee: Code(s): M17.11 - Unilateral primary osteoarthritis, right knee Plan: Right knee OA. Injected Euflexxa #1 today (2) Bilateral hip joint arthritis: Code(s): M16.0 - Bilateral primary osteoarthritis of hip Plan: Seen in ED with clinical and radiographic evidence of mild-moderate hip OA. No intervention currently warranted. Plan Scribed for James Lazo MD by Maldonado Baca, biomedical equipment technician, on 05/05/23 at 2:45 PM, EST. Coding Level of Care Code Est Pt Level 3 (00277) Diagnoses Osteoarthritis of right knee M17.11 Bilateral hip joint arthritis M16.0 CPT Codes Coding - Large joint: 04136 - Large joint ([id number])
== END 2023-05-05 15:03 | disposition home or self-care (01) ==
PROVIDERS: PCP Nurse Practitioner Family; Visit Provider Orthopaedic Surgery
DX: M17.11 Unilateral primary osteoarthritis, right knee (principal); M16.0 Bilateral primary osteoarthritis of hip
CPT/HCPCS: 20610; 99213

== ENCOUNTER → 2023-05-05 14:26 | Outpatient (BNVA) | payer OTHER, SELFPAY | PROVIDERS: PCP Nurse Practitioner Family; Visit Provider Orthopaedic Surgery | DX: M17.11 Unilateral primary osteoarthritis, right knee (principal); M16.0 Bilateral primary osteoarthritis of hip | CPT/HCPCS: 20610; J7323 ==

== ENCOUNTER 2023-05-12 07:22 | Outpatient (REF) | payer OTHER, SELFPAY ==
--- NOTE | ~2023-05-12 | CT_ITS ---
EXAMINATION: CT CHEST WITHOUT CONTRAST CLINICAL INFORMATION: Chronic cough. COMPARISON: None available. TECHNIQUE: Multidetector volumetric CT imaging of the chest was done. Axial MIP volume rendering provided. Sagittal and coronal reformatted images were obtained. This CT examination was performed using dose optimization techniques as appropriate, variously including the following: *Automated exposure control *Adjustment of mA and/or kV according to patient size (this includes techniques or standardized protocols for targeted exams where dose is matched to indication/reason for exam; i.e. extremities or head) *Use of iterative reconstruction technique DLP: 275 mGy-cm FINDINGS: ROOM CLERK: Well-inflated lungs. LUNGS: The lungs are well expanded and clear of acute pneumonic process. There is no pulmonary nodule, mass or ground-glass density. There is focal atelectasis in the lingula. There is minimal peribronchial airway thickening but no bronchiectasis or debris visualized. There is no interstitial thickening. Nonspecific mild thickening of left medial major fissure. MEDIASTINUM: The thyroid lobes are symmetrical and normal. The central trachea and bronchi are widely patent. Heart size and the great vessels are normal caliber. No abnormal-sized mediastinal lymph nodes seen. There is no pericardial effusion. CORONARY ARTERY CALCIFICATION: None visualized on this study. PLEURA: There is no pleural effusion. No pleural mass or thickening. AXILLA: No abnormal-sized axillary lymph nodes seen. The chest wall is unremarkable. UPPER ABDOMEN: Visualized liver, spleen, pancreas and bilateral adrenal glands are unremarkable. OSSEOUS STRUCTURES: No aggressive lytic or sclerotic process seen. CT/CT chest wo IV con IMPRESSION: Minimal atelectasis in the lingula. No pulmonary nodule, mass or abnormal lymphadenopathy. Fleischner guidelines were followed.
[2023-05-12 11:37] LABS: Appearance Urine Clear; Color Urine Yellow; Glucose Urine UA Negative (Negative); Leukocyte Esterase Urine Negative (Negative); Nitrite Urine Negative (Negative); PH 5.5 (5.0-9.0); Specific Gravity - Urine 1.025 (1.005-1.025); Urine Blood Negative (Negative); Urine Ketones Negative (Negative); Urine Protein Negative (Neg-Trace)
[2023-05-12 11:43] LABS: Basophils Absolute Auto 0.1 X10*3/uL (0.0-0.2); Basophils Percent Auto 0.8 % (0-2); Eosinophils Absolute Auto 0.2 X10*3/uL (0.0-0.4); Eosinophils Percent Auto 3.2 % (0-4); Hemoglobin 13.8 g/dl (14.0-18.0); Imm Gran Abs Auto 0.04 X10*3/uL (0.00-0.03); Imm Gran Pct Auto 0.7 % (0.0-0.4); Lymphocytes Absolute Auto 2.2 X10*3/uL (1.2-4.9); Lymphocytes Percent Auto 37.9 % (20-40); MANUAL DIFF FLAG SCAN; Mean Corpuscular HGB Conc 32.9 g/dl (31.0-36.0); Mean Corpuscular Hemoglobin 29.7 pg (27.0-33.0); Mean Corpuscular Volume 90.3 fL (80.0-98.0); Mean Platelet Volume 10.3 fL (9.4-12.4); Monocytes Absolute Auto 0.6 X10*3/uL (0.1-1.2); Monocytes Percent Auto 9.5 % (2-11); Neutrophils Absolute Auto 2.8 x10*3/uL (2.0-8.3); Neutrophils Percent Auto 47.9 % (45-73); Platelet Count 310 X10*3/uL (160-400); Red Blood Count 4.65 X10*6/uL (4.60-5.80); Red Cell Distribution Width 12.2 % (11.0-16.0); SCAN SMEAR FLAG 1; White Blood Count 5.9 X10*3/uL (4.8-10.8)
[2023-05-12 12:02] LABS: SLIDE REVIEW VERIFIED
[2023-05-12 12:12] LABS: Alanine Aminotransferase 13 U/L (0-40); Alkaline Phosphatase 87 U/L (39-117); Anion Gap 14 (12-20); Aspartate Amino Transferase 15 U/L (5-37); Bilirubin Total 0.6 mg/dL (0.0-1.0); Blood Urea Nitrogen 20 mg/dL (9-16); Calcium 9.4 mg/dL (8.4-10.2); Carbon Dioxide 23 mmol/L (22-29); Chloride 108 mmol/L (96-108); Cholesterol 171 mg/dL (<200); Estimated Glomerular Filt Rate > 60; Glucose Fasting 94 mg/dL (60-99); HDL Cholesterol 31 mg/dL (>40); LDL Cholesterol Calculated 122 mg/dL (<100); Potassium 4.3 mmol/L (3.3-5.1); Sodium 141 mmol/L (135-145); Total Protein 6.8 g/dL (6.5-8.0); Triglycerides 90 mg/dL (<150)
[2023-05-12 12:34] LABS: Prostate Specific Antigen Scr 0.93 ng/mL (<0.05-4.0)
== END 2023-05-12 07:23 | disposition home or self-care (01) ==
LOC: HO.CT 07:22
PROVIDERS: PCP Nurse Practitioner Family; Visit Provider Nurse Practitioner Family
DX: Z12.5 Encounter for screening for malignant neoplasm of prostate (principal); M17.11 Unilateral primary osteoarthritis, right knee; R05.3 Chronic cough; I10 Essential (primary) hypertension; Z00.00 Encounter for general adult medical examination without abnormal findings
CPT/HCPCS: 20610; 36415; 71250; 80053; 80061; 81003; 84153; 84443; 85025; J7323

== ENCOUNTER 2023-05-12 08:19 | Outpatient (AMB) | payer OTHER, SELFPAY ==
--- NOTE | 2023-05-12 08:30 | A.OFFVIS_ITS ---
Intake Intake Visit Reasons: Right Knee Euflexxa #2 Intake Note: Maciel is a 57 year old female who presents today for a Right knee Euflexxa #2 Allergies penicillin V Allergy (Severe, Verified 04/21/23 14:59) anaphylaxis, swelling HPI Right Knee Euflexxa #2 HPI Details Maciel is a 57 year old man who returns for his second right knee Euflexxa injection. [facility] Medical History Impacted cerumen of both ears Arthritis of left knee Hypertension Surgical History H/O umbilical hernia repair (01/30/22) History of Achilles tendon repair History of medial meniscus repair of left knee History of tonsillectomy History of arthroplasty of left ankle History of hand surgery H/O medial meniscus repair of right knee Social History Housing: House Alcohol intake: current Alcohol intake frequency: holidays/special occasions only Patient Tobacco Use Status: Never used Tobacco e-Cigarette/Vaping Use: Never Used Second Hand Smoke Exposure: No service: Yes Current occupational status: employed Current occupation: [employer] Current occupational exposures/hazards: Yes Cognitive needs: No Hearing needs: No Vision needs: No Review of Systems Const All systems reviewed & are unremarkable except as noted in HPI and below Physical Exam Const General: no acute distress, alert and awake Orientation/consciousness: patient oriented x3 HEENT Head: Yes normocephalic and Yes atraumatic Eyes EOM: EOMs intact bilaterally Resp Effort & Inspection: normal respiratory effort and able to speak in complete sentences Cardio Jugular venous distension: no JVD Skin General skin exam: turgor normal Rashes: no rashes Neuro General: patient oriented x3 Psych Appearance: grossly normal Affect: normal affect Attitude: cooperative Office Procedures Joint Injection/Drain Joint Injection/Drain Details: Injected 1 mL of Decadron and 3 mL 1% lidocaine and 3 mL of 0.25% Marcaine. Site was prepped using aseptic technique. Patient tolerated the procedure well. Primary Site: right knee Approach Used: anterolateral Coding 68848 - Large joint Procedure code (CPT) selection complete Assessment & Plan Assessment & Plan (1) Osteoarthritis of right knee: Code(s): M17.11 - Unilateral primary osteoarthritis, right knee Plan: Right knee OA. Injected 2/3 Euflexxa. Plan Scribed for James Lazo MD by Maldonado Baca, medical insurance collector, on 05/12/23 at 8:35 AM, EST. Coding Level of Care Code Est Pt Level 2 (02863) Diagnoses Osteoarthritis of right knee M17.11 CPT Codes Coding - 92932 Large joint: 16289 - Large joint ([id number])
== END 2023-05-12 09:09 | disposition home or self-care (01) ==
PROVIDERS: PCP Nurse Practitioner Family; Visit Provider Orthopaedic Surgery
DX: M17.11 Unilateral primary osteoarthritis, right knee (principal)
CPT/HCPCS: 20610

== ENCOUNTER → 2023-05-12 15:58 | Outpatient (AMB) | payer OTHER, SELFPAY ==
[2023-05-12 16:03] VITALS: BP 141/82; PULSE 82; BMI 37.6
--- NOTE | 2023-05-12 16:03 | MHC.OFFVIS ---
Intake Vital Signs 05/12/23 16:03 Height 6 ft 3 in Weight 301 lb 2.423 oz BMI 37.6 BP 141/82 H Blood Pressure Location Rt brachial Position Sitting Pulse 82 Intake Visit Reasons: Colonoscopy Screening Intake Note: Patient presents to in office visit today as a new patient for colonoscopy screening. CC: Patient reports his last colonoscopy was done about 5 years ago, he believes at [facility] [place]. Patient states he was seen by Dr. Bah for anal fissure in the past. He states he had a CT scan done today because he always has a dry cough. He states he had EGD done at the same time he had colonoscopy and was told he had an ulcer. Allergies penicillin V Allergy (Severe, Verified 05/12/23 16:10) anaphylaxis, swelling HPI Colonoscopy Screening HPI Details 57 year old? male with past medical history of osteoarthritis of right knee, bilateral hip arthritis, umbilical hernia, history of gastric ulcers is here today for pre colonoscopy screening.? Patient was sent to us by his PCP.? Last? Patient denies any gastrointestinal symptoms in the past or at present.? However patient does report that he has had upper endoscopy the same time as he had colonoscopy in and was found to have gastric ulcers. Patient reports that occasionally he will have acid reflux. Current review is not on any PPI. Patient occasionally uses ibuprofen for joint pain. Occasional epigastric discomfort. ? Denies history of difficulty with sedation or anesthesia in the past.? Negative for history of sleep apnea.? Denies any history of cardiac, renal, pulmonary, or hepatic disease.?? No history of infectious? diseases like hepatitis A, B, C, HIV or tuberculosis.? Patient is not on any anticoagulation therapy. [facility] Medical History Impacted cerumen of both ears Arthritis of left knee Hypertension Surgical History H/O colonoscopy History of esophagogastroduodenoscopy (EGD) H/O umbilical hernia repair (01/30/22) History of Achilles tendon repair History of medial meniscus repair of left knee History of tonsillectomy History of arthroplasty of left ankle History of hand surgery H/O medial meniscus repair of right knee Social History (Reviewed 05/12/23 @ 16:11 by KALEIGH PerryImelda Housing: House Alcohol intake: current Alcohol intake frequency: holidays/special occasions only Patient Tobacco Use Status: Never used Tobacco e-Cigarette/Vaping Use: Never Used Second Hand Smoke Exposure: No service: Yes Current occupational status: employed Current occupation: [employer] Current occupational exposures/hazards: Yes Cognitive needs: No Hearing needs: No Vision needs: No Review of Systems Const Denies weight gain and Denies weight loss ENT Reports no additional complaints, Denies dysphagia and Denies odynophagia Card Reports no additional complaints Resp Reports no additional complaints GI Denies abdominal pain, Denies belching, Denies melena, Denies bloating, Denies change in bowel habits, Denies dysphagia, Denies excessive flatus, Denies dyspepsia, Reports heartburn, Denies diarrhea, Denies loose stools, Denies nausea, Denies odynophagia and Denies vomiting Reports no additional complaints Musc Reports no additional complaints Neuro Reports no additional complaints Psych Reports no additional complaints Endo Reports no additional complaints Physical Exam Vital Signs: Last Vital Signs Pulse 82 05/12/23 16:03 BP 141/82 H 05/12/23 16:03 BMI result Body Mass Index 37.6 Const General: healthy appearing, no acute distress and well developed Nutritional Appearance: obese Orientation/consciousness: patient oriented x3 HEENT Head: Yes normal to inspection, Yes normocephalic and Yes atraumatic Face and sinus: Yes normal facial exam Mouth: Normal oral and palatal mucosa present Throat: Yes posterior oropharynx normal, Yes tonsils normal and Yes uvula midline Eyes General: appearance normal, both eyes and all related structures Neck Neck: Yes normal visual inspection, Yes full ROM and Yes trachea midline Thyroid: Thyroid normal Resp Effort & Inspection: normal respiratory effort, able to speak in complete sentences, no tracheal deviation and symmetric chest movement Auscultation: clear to auscultation bilaterally Cardio Rate: regular rate GI Inspection: Yes normal to inspection, No distended and Yes obesity Palpation (GI): Soft to palpation, not firm, nontender and No hepatosplenomegaly present Auscultation: normal bowel sounds General: Yes no CVA tenderness Back/Spine/Pelvis Back: no CVA tenderness Skin General skin exam: elasticity normal, turgor normal and dry skin Neuro General: patient oriented x3 Psych Appearance: grossly normal Mental Status: mental status grossly normal Affect: normal affect Assessment & Plan Assessment & Plan (1) Screening for colon cancer: Code(s): Z12.11 - Encounter for screening for malignant neoplasm of colon (2) History of gastric ulcer: Code(s): Z87.11 - Personal history of peptic ulcer disease (3) GERD (gastroesophageal reflux disease): Code(s): K21.9 - Gastro-esophageal reflux disease without esophagitis Qualifiers: Esophagitis presence: esophagitis presence not specified Qualified Code(s): K21.9 - Gastro-esophageal reflux disease without esophagitis Plan Patient denies any GI, cardiac or respiratory symptoms.? Occasional symptoms of acid reflux and epigastric discomfort. Patient was encouraged to stop taking ibuprofen and if he does have to take it due to his joint pain he must take it with food. Currently patient is not on any PPI. Will send him for upper endoscopy to rule out gastric ulcer, gastritis, esophagitis, peptic ulcer. Denies any issues with anesthesia in the past.? Denies any history of sleep apnea.? No history infectious diseases in the past or present.? Not on any anticoagulation therapy.? No family or personal history of colon cancer.? Patient denies melena, hematochezia, unintentional weight loss or ribbon like stools.? Discussed at length the pre-procedure,? prep, diet & medications as well as what to expect prior, during and after the procedure.?? Stressed the importance of good bowel prep. ?Recommended the use of Vaseline or Calmoseptine OTC & baby wipes with bowel movements to promote comfort.? ?Patient verbalizes understanding and agrees to plan of care.? He was given the opportunity to ask questions and all questions answered.? We will see him after the procedure.? Medications: New bisacodyl (Dulcolax (bisacodyl)) take 4 tabs at noon the day before your colonoscopy 20 mg (4 x 5 mg) PO ONCE 1 day 4 tabs 0RF Z12.11 - Encounter for screening for malignant neoplasm of colon polyethylene glycol 3350 (Miralax) As directed by gastroenterology department at [facility] 238 grams PO ONCE 238 grams 0RF Z12.11 - Encounter for screening for malignant neoplasm of colon Coding Level of Care Code New Pt Level 3 (87264) Diagnoses Screening for colon cancer Z12.11 History of gastric ulcer Z87.11 Gastroesophageal reflux disease, unspecified whether esophagitis present K21.9 Esophagitis presence: esophagitis presence not specified Time Spent (min) 40 Comment 30 minutes spent with patient and additional 10 minutes spent reviewing his records
== END ==
PROVIDERS: PCP Nurse Practitioner Family; Visit Provider Nurse Practitioner Family
DX: Z01.818 Encounter for other preprocedural examination (principal); Z12.11 Encounter for screening for malignant neoplasm of colon; Z87.11 Personal history of peptic ulcer disease; K21.9 Gastro-esophageal reflux disease without esophagitis
CPT/HCPCS: 99202

== ENCOUNTER 2023-05-19 09:52 | Outpatient (AMB) | payer OTHER, SELFPAY ==
--- NOTE | 2023-05-19 09:57 | A.OFFVIS_ITS ---
Intake Intake Visit Reasons: Right Knee Euflexxa #3 Intake Note: Maciel is a 57 year old male who presents today for right knee euflexxa #3. He states that he fells some relief from the injections Allergies penicillin V Allergy (Severe, Verified 05/12/23 16:10) anaphylaxis, swelling HPI Right Knee Euflexxa #3 HPI Details Maciel is a 57 year old man who returns for his final right knee Euflexxa injection. He reports feeling some relief of his symptoms following these injections. [facility] Medical History Impacted cerumen of both ears Arthritis of left knee Hypertension Surgical History H/O colonoscopy History of esophagogastroduodenoscopy (EGD) H/O umbilical hernia repair (01/30/22) History of Achilles tendon repair History of medial meniscus repair of left knee History of tonsillectomy History of arthroplasty of left ankle History of hand surgery H/O medial meniscus repair of right knee Social History Housing: House Alcohol intake: current Alcohol intake frequency: holidays/special occasions only Patient Tobacco Use Status: Never used Tobacco e-Cigarette/Vaping Use: Never Used Second Hand Smoke Exposure: No service: Yes Current occupational status: employed Current occupation: [employer] Current occupational exposures/hazards: Yes Cognitive needs: No Hearing needs: No Vision needs: No Review of Systems Const All systems reviewed & are unremarkable except as noted in HPI and below Physical Exam Const General: no acute distress, alert and awake Orientation/consciousness: patient oriented x3 Neuro General: patient oriented x3 Extrem Other: skin c/d/i no effusion Psych Appearance: grossly normal Affect: normal affect Attitude: cooperative Office Procedures Joint Injection/Drain Joint Injection/Drain Details: Injected Euflexxa. Site was prepped using aseptic technique. Patient tolerated the procedure well. Coding 70473 - Large joint Procedure code (CPT) selection complete Assessment & Plan Assessment & Plan (1) Osteoarthritis of right knee: Code(s): M17.11 - Unilateral primary osteoarthritis, right knee Plan: Injected right knee 3/3 Euflexxa Plan Scribed for James Lazo MD by Maldonado Lubanszky, medical and health services manager, on 05/19/23 at 10:05 AM, EST. Coding Level of Care Code Est Pt Level 2 (34532) Diagnoses Osteoarthritis of right knee M17.11 CPT Codes Coding - 31922 Large joint: 39217 - Large joint ([id number])
== END 2023-05-19 10:13 | disposition home or self-care (01) ==
PROVIDERS: PCP Nurse Practitioner Family; Visit Provider Orthopaedic Surgery
DX: M17.11 Unilateral primary osteoarthritis, right knee (principal)
CPT/HCPCS: 20610

== ENCOUNTER → 2023-05-19 09:52 | Outpatient (BNVA) | payer OTHER, SELFPAY | PROVIDERS: PCP Nurse Practitioner Family; Visit Provider Orthopaedic Surgery | DX: M17.11 Unilateral primary osteoarthritis, right knee (principal) | CPT/HCPCS: 20610; J7323 ==

== ENCOUNTER 2023-05-29 15:17 | Outpatient (AMB) | payer OTHER, SELFPAY ==
--- NOTE | 2023-05-29 15:32 | MHC.PC.OV ---
Vital Signs 05/29/23 15:34 Height 6 ft 3 in Weight 303 lb BMI 37.9 BP 130/70 Blood Pressure Location Lt brachial Position Sitting Pulse 89 Pulse Source Pulse Oximeter Pulse Oximetry (%) 98 Oxygen Delivery Method Room Air Intake Visit Reasons: [facility], groin pain Intake Note: Patient here for groin pain that has been present for about 5 weeks. Pt states that the pain started on the left side which is what made him go to the ED but now it is both sides and feels like pressure like he has to pee all the time. Allergies penicillin V Allergy (Severe, Verified 05/29/23 15:37) anaphylaxis, swelling Tobacco use date assessed: 11/08/21 HPI [facility], groin pain HPI Details Patient with the ER on 05/02/2023, for left groin pain that developed 5 days prior after a walk. He denied any fevers, rash, scrotal pain, testicular pains, urinary symptoms. He reports the pain is much worse with ambulating. It was thought that it was his left hip flexors as a source. CT scan was negative for any acute injury. CT:1. Small fat-containing bilateral inguinal hernias.2. Engorged vasculature in the left greater than right scrotal sacs that could be seen with varicoceles, suboptimally assessed in this noncontrast examination. Further evaluation with ultrasound could be obtained as clinically warranted. 3. Diverticulosis but no evidence of acute diverticulitis.4. Subtle urinary bladder wall trabeculation with equivocal mild wall thickening, recommend clinical correlation for outlet obstruction and cystitis. Today, pt reports the pain is better to left groin (there but not intense), pain is moving more to the posterior scrotal region, and to his right groin. Pt notices more frequent urination. PSA was WNL. [facility] Medical History Impacted cerumen of both ears Arthritis of left knee Hypertension Surgical History H/O colonoscopy History of esophagogastroduodenoscopy (EGD) H/O umbilical hernia repair (01/30/22) History of Achilles tendon repair History of medial meniscus repair of left knee History of tonsillectomy History of arthroplasty of left ankle History of hand surgery H/O medial meniscus repair of right knee Social History Housing: House Alcohol intake: current Alcohol intake frequency: holidays/special occasions only Patient Tobacco Use Status: Never used Tobacco e-Cigarette/Vaping Use: Never Used Second Hand Smoke Exposure: No service: Yes Current occupational status: employed Current occupation: [employer] Current occupational exposures/hazards: Yes Cognitive needs: No Hearing needs: No Vision needs: No Questionnaire Thrive Questionnaire Date Thrive assessed: 11/08/21 KALEY-7 AMB Questionnaire KALEY-7 Date KALEY - 7 assessed: 11/08/21 Source: Developed by Drs. Abundio Michael, Rachel Rojas, Tom Peoples and colleagues, with an educational jovanny from [employer]. Physical exam (Primary Care) Vital Signs: Last Vital Signs Pulse 89 05/29/23 15:34 BP 130/70 05/29/23 15:34 Pulse Ox 98 05/29/23 15:34 Oxygen Delivery Method Room Air 05/29/23 15:34 BMI result Body Mass Index 37.9 Tobacco/Smoking Status: Tobacco use Status Tobacco use date assessed 11/08/21 05/29/23 15:32 Patient Tobacco Use Status Never used Tobacco 05/29/23 15:32 e-Cigarette/Vaping Use Never Used 05/29/23 15:32 Thrive Assessment: Date of Thrive Assessment Date Thrive assessed 11/08/21 05/29/23 15:32 Const General: cooperative and healthy appearing Resp Effort & Inspection: normal respiratory effort Auscultation: clear to auscultation bilaterally Cardio Rate: regular rate Rhythm: regular rhythm Heart sounds: S1 normal heart sound present and S2 normal heart sound present Other: no visual inguinal hernias noted or scrotal bulges. Tenderness noted to posterior scrotum, no erythema noted. Psych Appearance: grossly normal Mental Status: mental status grossly normal Speech and movement: Normal speech and movement present Affect: normal affect Attitude: cooperative Thought process: Normal thought process present Thought content: Normal thought content present Insight: Good insight present (Psych) Judgement: Good judgement present (Psych) Results AMB Urinalysis, Automated UA Leukoctes 0 Vinicius/uL Last Edit by KALEIGH Lynch on 05/29/23 17:09 UA Nitrite Negative Last Edit by Lea Walker, [facility] on 05/29/23 17:09 UA Urobilinogen 0.2 mg/dL Last Edit by Lea Walker [facility] on 05/29/23 17:09 UA Protein 0 mg/dL Last Edit by Lea Walker, [facility] on 05/29/23 17:09 UA pH 6.0 Last Edit by Lea Walker, [facility] on 05/29/23 17:09 UA Blood 0 Yusuf/uL Last Edit by Lea Walker, [facility] on 05/29/23 17:09 UA Specific [place] 1.030 Last Edit by Lea Walker [facility] on 05/29/23 17:09 UA Ketone Negative Last Edit by Lea Walker, [facility] on 05/29/23 17:09 UA Bilirubin 1 mg/dL Last Edit by Lea Walker [facility] on 05/29/23 17:09 UA Glucose 0 mg/dL Last Edit by Lea Walker [facility] on 05/29/23 17:09 Results Reviewed Results Reviewed: Laboratory Last Values Urine pH (Auto) 6.0 05/29/23 17:00 Specific [place] (Auto) 1.030 05/29/23 17:00 Urine Protein (Auto) 0 mg/dL 05/29/23 17:00 Glucose (UA)(Auto) 0 mg/dL 05/29/23 17:00 Urine Ketones (Auto) Negative 05/29/23 17:00 Urine Blood (Auto) 0 Yusuf/uL 05/29/23 17:00 Urine Nitrite (Auto) Negative 05/29/23 17:00 Urine Bilirubin (Auto) 1 mg/dL 05/29/23 17:00 Urine Urobilinogen (Auto) 0.2 mg/dL 05/29/23 17:00 Leukocyte Esterase (Auto) 0 Vinicius/uL 05/29/23 17:00 Assessment and Plan Assessment & Plan (1) Groin pain: Code(s): R10.30 - Lower abdominal pain, unspecified (2) Scrotal pain: Code(s): N50.82 - Scrotal pain Orders: Orders US scrotum Today N50.82 - Scrotal pain, R10.30 - Lower abdominal pain, unspecified AMB Urinalysis Automated Today N50.82 - Scrotal pain, R10.30 - Lower abdominal pain, unspecified UA CC w/rflx Micro + Cult Today N50.82 - Scrotal pain, R10.30 - Lower abdominal pain, unspecified Referrals Urology Referral N50.82 - Scrotal pain, R10.30 - Lower abdominal pain, unspecified Coding Level of Care Code Est Pt Level 3 (80097) Diagnoses Groin pain R10.30 Scrotal pain N50.82
[2023-05-29 15:34] VITALS: BP 130/70; PULSE 89; O2SAT 98; BMI 37.9
== END 2023-05-29 17:10 | disposition home or self-care (01) ==
PROVIDERS: PCP Nurse Practitioner Family; Visit Provider Nurse Practitioner Family
DX: R10.30 Lower abdominal pain, unspecified (principal); N50.82 Scrotal pain
CPT/HCPCS: 81003; 99213

== ENCOUNTER 2023-05-29 17:00 | Outpatient (REF) | payer OTHER, SELFPAY ==
[2023-05-30 12:26] LABS: Appearance Urine Turbid; Color Urine Yellow; Glucose Urine UA Negative (Negative); Leukocyte Esterase Urine Negative (Negative); Nitrite Urine Negative (Negative); PH 5.5 (5.0-9.0); Specific Gravity - Urine 1.025 (1.005-1.025); Urine Blood Negative (Negative); Urine Ketones Negative (Negative); Urine Protein Negative (Neg-Trace)
== END 2023-05-29 17:01 | disposition home or self-care (01) ==
LOC: HO.LNP 17:00
PROVIDERS: Visit Provider Nurse Practitioner Family
DX: R10.30 Lower abdominal pain, unspecified (principal); N50.82 Scrotal pain
CPT/HCPCS: 81003

== ENCOUNTER 2023-06-05 13:51 | Outpatient (REF) | payer OTHER, SELFPAY | END 2023-06-05 13:52 | disposition home or self-care (01) | LOC: HO.HMGCX 13:51 | PROVIDERS: PCP Nurse Practitioner Family; Visit Provider Nurse Practitioner Family | DX: R10.30 Lower abdominal pain, unspecified (principal); N50.82 Scrotal pain | CPT/HCPCS: 76870 ==

== ENCOUNTER 2023-06-06 14:32 | Outpatient (AMB) | payer OTHER, SELFPAY ==
--- NOTE | 2023-06-06 14:39 | A.OFFVIS_ITS ---
Intake Intake Visit Reasons: EP, PRP injection of R knee Intake Note: Maciel is a 57 year old male who presents today for a Right Knee PRP Injection. Allergies penicillin V Allergy (Severe, Verified 06/06/23 14:41) anaphylaxis, swelling PFSH Medical History Impacted cerumen of both ears Arthritis of left knee Hypertension Surgical History H/O colonoscopy History of esophagogastroduodenoscopy (EGD) H/O umbilical hernia repair (01/30/22) History of Achilles tendon repair History of medial meniscus repair of left knee History of tonsillectomy History of arthroplasty of left ankle History of hand surgery H/O medial meniscus repair of right knee Social History Housing: House Alcohol intake: current Alcohol intake frequency: holidays/special occasions only Patient Tobacco Use Status: Never used Tobacco e-Cigarette/Vaping Use: Never Used Second Hand Smoke Exposure: No service: Yes Current occupational status: employed Current occupation: [employer] Current occupational exposures/hazards: Yes Cognitive needs: No Hearing needs: No Vision needs: No Physical Exam Extrem Other: skin c/d/i no effusion Office Procedures Joint Injection/Drain Joint Injection/Drain Details: PRP Primary Site: right knee Approach Used: lateral parapatellar Coding - Large joint Procedure code (CPT) selection complete Assessment & Plan Assessment & Plan (1) Osteoarthritis of right knee: Code(s): M17.11 - Unilateral primary osteoarthritis, right knee Plan: PRP injection right knee Coding Level of Care Code Est Pt Level 2 (14297) Diagnoses Osteoarthritis of right knee M17.11 CPT Codes Coding - Large joint: 27583 - Large joint ([id number])
== END 2023-06-06 16:36 | disposition home or self-care (01) ==
PROVIDERS: PCP Nurse Practitioner Family; Visit Provider Orthopaedic Surgery
DX: M17.11 Unilateral primary osteoarthritis, right knee (principal)
CPT/HCPCS: 0232T

== ENCOUNTER → 2023-06-06 14:32 | Outpatient (BNVA) | payer OTHER, SELFPAY | PROVIDERS: PCP Nurse Practitioner Family; Visit Provider Orthopaedic Surgery ==

== ENCOUNTER 2023-07-29 16:06 | Outpatient (AMB) | payer OTHER, SELFPAY ==
--- NOTE | 2023-07-29 16:01 | MHC.OFFVIS ---
Intake Intake Visit Reasons: varicocele/ megasperm s/p vasectomy Intake Note: New Patient presents for initial visit for groin pain Urology Medications: none Blood Thinner: none Allergies to antibiotics: Penicillin V Women Nurse Required: No Accompanied by: Self / Same As Patient Allergies penicillin V Allergy (Severe, Verified 07/29/23 16:43) anaphylaxis, swelling Medication List - Last Reconciled 07/29/23 by XIMENA Martines hydrochlorothiazide 12.5 mg PO DAILY 90 days lisinopril 10 mg PO DAILY 90 days meloxicam 15 mg PO DAILY 30 days HPI HPI Comments History of Present Illness Details Maciel is a very pleasant 58-year-old male patient of Dr. Ma. He has a past medical history of bilateral arthritis of knees and hypertension. He presents to the office today as a new patient for ongoing left-sided groin pain and scrotal pain. He reports having followed up with his PCP at which time a scrotal ultrasound was ordered and performed. These results were reviewed with the patient today. No findings to explain symptoms of testicular pain. 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 He reports having had a vasectomy approximately 20 years ago at [facility]. He reports left-sided groin pain initially presented in May and feels groin pain has since subsided however continues with suprapubic pain. He discusses noting discomfort diminishes when he is less active. He denies having trialed any [id number] medications and or heat/ice therapy. In assessment of the patient today bilateral testicles and scrotum with no palpable lumps, masses, or pain. There is no rashes, lesions, and or open areas noted to the penis, groin, scrotum, and or testicles. Global pain noted throughout the inguinal ring and canal region. He otherwise denies any bothersome urinary issues or concerns. He denies any associated nausea or vomiting. He is sexually active with his . He denies any known trauma to this area. In office urinalysis results reviewed with the patient today. Positive cremasteric sign. He otherwise offers no other issues or concerns at this time. [facility] Medical History Impacted cerumen of both ears Arthritis of left knee Hypertension Surgical History H/O colonoscopy History of esophagogastroduodenoscopy (EGD) H/O umbilical hernia repair (01/30/22) History of Achilles tendon repair History of medial meniscus repair of left knee History of tonsillectomy History of arthroplasty of left ankle History of hand surgery H/O medial meniscus repair of right knee Social History Housing: House Alcohol intake: current Alcohol intake frequency: holidays/special occasions only Patient Tobacco Use Status: Never used Tobacco e-Cigarette/Vaping Use: Never Used Second Hand Smoke Exposure: No service: Yes Current occupational status: employed Current occupation: [employer] Current occupational exposures/hazards: Yes Cognitive needs: No Hearing needs: No Vision needs: No Review of Systems Const Reports as per HPI Eyes Reports no additional complaints ENT Reports no additional complaints Card Reports as per HPI Resp Reports no additional complaints GI Reports no additional complaints Reports as per HPI Musc Reports as per HPI Neuro Reports no additional complaints Psych Reports no additional complaints Endo Reports no additional complaints Quintin/Lymph Reports no additional complaints Aller/Immun Reports no additional complaints Physical Exam Const General: cooperative, healthy appearing, comfortable, no acute distress, well developed, alert and awake Orientation/consciousness: patient oriented x3 Limitations: no limitations HEENT Head: Yes normal to inspection, Yes normocephalic and Yes atraumatic Ears: hearing grossly normal bilaterally Eyes General: appearance normal, both eyes and all related structures Neck Neck: Yes normal visual inspection and Yes trachea midline Chest Chest palpation & inspection: normal inspection of the chest Resp Effort & Inspection: normal respiratory effort and able to speak in complete sentences Cardio Rate: regular rate GI Inspection: Yes normal to inspection General: Yes no CVA tenderness Penis: normal penis and circumcised Meatus: meatus normal Scrotum: scrotum normal Testes: Testes normal Back/Spine/Pelvis Back: no CVA tenderness Skin General skin exam: no rashes or lesions noted Neuro General: patient oriented x3 Extrem General: Yes normal to inspection Psych Appearance: grossly normal and well kempt Mental Status: mental status grossly normal Speech and movement: Normal speech and movement present and Clear speech present Affect: normal affect Attitude: cooperative Thought process: Normal thought process present Thought content: Normal thought content present Results AMB Urinalysis, Automated UA Leukoctes 0 Vinicius/uL Last Edit by Miriam Murray [facility] on 07/29/23 16:11 UA Nitrite Negative Last Edit by Miriam Murray [facility] on 07/29/23 16:11 UA Urobilinogen 0.2 mg/dL Last Edit by Miriam Murray [facility] on 07/29/23 16:11 UA Protein 0 mg/dL Last Edit by Miriam Murray [facility] on 07/29/23 16:11 UA pH 6.0 Last Edit by Miriam Murray [facility] on 07/29/23 16:11 UA Blood 0 Yusuf/uL Last Edit by Miriam Murray [facility] on 07/29/23 16:11 UA Specific [place] 1.020 Last Edit by Miriam Murray, [facility] on 07/29/23 16:11 UA Ketone Negative Last Edit by Miriam Murray [facility] on 07/29/23 16:11 UA Bilirubin 0 mg/dL Last Edit by Miriam Murray [facility] on 07/29/23 16:11 UA Glucose 0 mg/dL Last Edit by Miriam Murray [facility] on 07/29/23 16:11 Results Reviewed Results Reviewed: Laboratory Last Values Urine pH (Auto) 6.0 07/29/23 16:09 Specific [place] (Auto) 1.020 07/29/23 16:09 Urine Protein (Auto) 0 mg/dL 07/29/23 16:09 Glucose (UA)(Auto) 0 mg/dL 07/29/23 16:09 Urine Ketones (Auto) Negative 07/29/23 16:09 Urine Blood (Auto) 0 Yusuf/uL 07/29/23 16:09 Urine Nitrite (Auto) Negative 07/29/23 16:09 Urine Bilirubin (Auto) 0 mg/dL 07/29/23 16:09 Urine Urobilinogen (Auto) 0.2 mg/dL 07/29/23 16:09 Leukocyte Esterase (Auto) 0 Vinicius/uL 07/29/23 16:09 Date of Service: 06/05/23 Procedure(s): US scrotum FINDINGS: RIGHT: Right testicle measures 4.2 x 2.3 x 2.9 cm, volume 14.7 mL. No focal testicular parenchymal lesions are visualized. Spectral Doppler analysis of the arterial and venous flow is normal in the right testis. Right epididymal head is normal in size. No right hydrocele or varicocele is seen. Right epididymal Doppler flow is normal. Clusters of echogenic foci are seen within the epididymal tubules which can be seen in the setting of dancing megasperm , status post vasectomy. LEFT: Left testicle measures 4.2 x 2.0 x 3.2 cm, volume 14.0 mL. No focal testicular parenchymal lesions are visualized. Spectral Doppler analysis of the arterial and venous flow is normal in the left testis. Left epididymal head is normal in size. No left hydrocele is seen. Small left varicocele. Left epididymal Doppler flow is normal. Clusters of echogenic foci are seen within the epididymal tubules which can be seen in the setting of dancing megasperm , status post vasectomy. IMPRESSION: 1. No findings to explain symptoms of testicular pain. 2. Clusters of echogenic foci are seen within the epididymal tubules which can be seen in the setting of dancing megasperm , status post vasectomy. Assessment & Plan Assessment & Plan (1) Inguinal pain of both sides: Code(s): R10.31 - Right lower quadrant pain; R10.32 - Left lower quadrant pain Plan In office urinalysis results reviewed with the patient today; as noted above. Recent scrotal ultrasound results reviewed with the patient today; as noted above. Patient denies any bothersome urinary issues. He reports be happy with current voiding parameters. Discussed at length potential causes of generalized inguinal pain patient is experiencing Discussed and stressed the importance of stretching; stretching exercises reviewed Reassurance provided Start Mobic as discussed and prescribed. Follow-up in 1-2 months; or sooner with any issues, concerns, and or questions. Orders: Orders AMB Urinalysis Automated Today R33.9 - Retention of urine, unspecified Medications: New meloxicam Do not take with any other NSAIDs 15 mg PO DAILY 30 days 30 tabs 1RF R10.31 - Right lower quadrant pain, R10.32 - Left lower quadrant pain Patient Instructions: The patient had an opportunity to ask questions regarding the treatment plan. All questions were answered. Physical exam, labs, and imaging were discussed and reviewed in detail. As well as risks, benefits, and discussion of treatment choices. No major barriers to understanding were identified. The patient expressed understanding and agreement with the above treatment plan. The patient was made aware they should contact our office by phone for worsening of their current condition, the appearance of new symptoms, or with any questions or concerns. Compliance is encouraged with any medications and follow up testing that is ordered. It is a privilege to be allowed the opportunity to participate in? your urological care.? Again, if you have any questions or concerns If you have any questions or concerns please do not hesitate to contact me. The office is [phone]. This note is constructed using voice recognition software. While every effort has been made to ensure accuracy manager of tires sales errors may have been included. Yours sincerely, XIMENA Martines Coding Level of Care Code New Pt Level 4 (06063) Diagnoses Inguinal pain of both sides R10.31; R10.32
== END 2023-07-29 16:27 | disposition home or self-care (01) ==
LOC: HO.HUSH 16:06
PROVIDERS: PCP Nurse Practitioner Family; Visit Provider Nurse Practitioner Family
DX: R10.31 Right lower quadrant pain (principal); R10.32 Left lower quadrant pain; R33.9 Retention of urine, unspecified
CPT/HCPCS: 99204

== ENCOUNTER → 2023-07-29 16:06 | Outpatient (BNVA) | payer OTHER, SELFPAY | PROVIDERS: PCP Nurse Practitioner Family; Visit Provider Nurse Practitioner Family | DX: R10.31 Right lower quadrant pain (principal); R10.32 Left lower quadrant pain; R33.9 Retention of urine, unspecified | CPT/HCPCS: 81003 ==

== ENCOUNTER 2023-09-10 15:46 | Outpatient (AMB) | payer OTHER, SELFPAY ==
--- NOTE | 2023-09-10 15:57 | MHC.OFFVIS ---
Intake Intake Visit Reasons: 2m follow up Intake Note: New Patient presents for initial visit for groin pain Urology Medications: meloxicam Blood Thinner: none Surtass Analyst Required: No Accompanied by: Self / Same As Patient Allergies penicillin V Allergy (Severe, Verified 09/10/23 20:50) anaphylaxis, swelling Medication List - Last Reconciled 09/10/23 by XIMENA Martines hydrochlorothiazide 12.5 mg PO DAILY 90 days lisinopril 10 mg PO DAILY 90 days meloxicam 15 mg PO DAILY 30 days sildenafil (Viagra) 100 mg PO DAILY PRN HPI HPI Comments History of Present Illness Details Maciel is a very pleasant 58-year-old male patient of Dr. Ma. He has a past medical history of bilateral arthritis of knees and hypertension. He presents to the office today for follow-up. Of note, patient was seen approximately 6 weeks ago as a new patient for ongoing left-sided groin pain and scrotal pain at which time he was prescribed Mobic. In discussion with the patient today he reports noting significant improvement in left-sided groin pain and scrotal pain he had been experiencing. Reports while on Mobic he felt symptoms had completely subsided. He reports approximately 7-10 days after he felt symptoms somewhat reoccurred. Previous workup has included a scrotal ultrasound noting no findings to explain symptoms of testicular pain. 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 He reports having had a vasectomy approximately 20 years ago at [facility]. He discusses noting discomfort diminishes when he is less active. He denies having trialed any heat/ice therapy. He currently denies pain. Discussed at length potential causes for groin and scrotal discomfort he has been experiencing intermittently. He discusses continuing being sexually active with his . He does report utilization of p.r.n. Viagra as needed. We did discussed at length lifestyle modifications to assist with erectile dysfunction. He denies any bothersome urinary issues or concerns. He denies any known trauma to this area. In office urinalysis results reviewed with the patient today. He otherwise offers no other issues or concerns at this time. [facility] Medical History Impacted cerumen of both ears Arthritis of left knee Hypertension Surgical History H/O colonoscopy History of esophagogastroduodenoscopy (EGD) H/O umbilical hernia repair (01/30/22) History of Achilles tendon repair History of medial meniscus repair of left knee History of tonsillectomy History of arthroplasty of left ankle History of hand surgery H/O medial meniscus repair of right knee Social History Housing: House Alcohol intake: current Alcohol intake frequency: holidays/special occasions only Patient Tobacco Use Status: Never used Tobacco e-Cigarette/Vaping Use: Never Used Second Hand Smoke Exposure: No service: Yes Current occupational status: employed Current occupation: [employer] Current occupational exposures/hazards: Yes Cognitive needs: No Hearing needs: No Vision needs: No Review of Systems Const Reports as per HPI Eyes Reports no additional complaints ENT Reports no additional complaints Card Reports as per HPI Resp Reports no additional complaints GI Reports no additional complaints Reports as per HPI Musc Reports as per HPI Neuro Reports no additional complaints Psych Reports no additional complaints Endo Reports no additional complaints Quintin/Lymph Reports no additional complaints Aller/Immun Reports no additional complaints Physical Exam Const General: cooperative, healthy appearing, comfortable, no acute distress, well developed, alert and awake Orientation/consciousness: patient oriented x3 Limitations: no limitations HEENT Head: Yes normal to inspection, Yes normocephalic and Yes atraumatic Ears: hearing grossly normal bilaterally Eyes General: appearance normal, both eyes and all related structures Neck Neck: Yes normal visual inspection and Yes trachea midline Chest Chest palpation & inspection: normal inspection of the chest Resp Effort & Inspection: normal respiratory effort and able to speak in complete sentences Cardio Rate: regular rate GI Inspection: Yes normal to inspection General: Yes no CVA tenderness Penis: normal penis and circumcised Meatus: meatus normal Scrotum: scrotum normal Testes: Testes normal Back/Spine/Pelvis Back: no CVA tenderness Skin General skin exam: no rashes or lesions noted Neuro General: patient oriented x3 Extrem General: Yes normal to inspection Psych Appearance: grossly normal and well kempt Mental Status: mental status grossly normal Speech and movement: Normal speech and movement present and Clear speech present Affect: normal affect Attitude: cooperative Thought process: Normal thought process present Thought content: Normal thought content present Results AMB Urinalysis, Automated UA Leukoctes 0 Vinicius/uL Last Edit by Sancho Coulter on 09/10/23 16:10 UA Nitrite Negative Last Edit by Sancho Coulter on 09/10/23 16:10 UA Urobilinogen 0.2 mg/dL Last Edit by Sancho Coulter on 09/10/23 16:10 UA Protein 15 mg/dL Last Edit by Sancho Coulter on 09/10/23 16:10 UA pH 6.0 Last Edit by [email or web address] on 09/10/23 16:10 UA Blood 0 Yusuf/uL Last Edit by [employer] on 09/10/23 16:10 UA Specific [place] 1.030 Last Edit by [email or web address] on 09/10/23 16:10 UA Ketone Negative Last Edit by Sancho Coulter on 09/10/23 16:10 UA Bilirubin 1 mg/dL Last Edit by [email or web address] Coulter on 09/10/23 16:10 UA Glucose 00 mg/dL Last Edit by Sancho Coulter on 09/10/23 16:10 Results Reviewed Results Reviewed: Laboratory Last Values Urine pH (Auto) 6.0 09/10/23 16:02 Specific [place] (Auto) 1.030 09/10/23 16:02 Urine Protein (Auto) 15 mg/dL 09/10/23 16:02 Glucose (UA)(Auto) 00 mg/dL 09/10/23 16:02 Urine Ketones (Auto) Negative 09/10/23 16:02 Urine Blood (Auto) 0 Yusuf/uL 09/10/23 16:02 Urine Nitrite (Auto) Negative 09/10/23 16:02 Urine Bilirubin (Auto) 1 mg/dL 09/10/23 16:02 Urine Urobilinogen (Auto) 0.2 mg/dL 09/10/23 16:02 Leukocyte Esterase (Auto) 0 Vinicius/uL 09/10/23 16:02 Assessment & Plan Assessment & Plan (1) Inguinal pain of both sides: Code(s): R10.31 - Right lower quadrant pain; R10.32 - Left lower quadrant pain (2) Groin pain: Code(s): R10.30 - Lower abdominal pain, unspecified (3) Scrotal pain: Code(s): N50.82 - Scrotal pain (4) Erectile dysfunction: Code(s): N52.9 - Male erectile dysfunction, unspecified Plan In office urinalysis results reviewed with the patient today; as noted above. . Patient denies any bothersome urinary issues. He reports be happy with current voiding parameters. Discussed at length potential causes of generalized inguinal pain patient has been experiencing Discussed and stressed the importance of stretching; stretching exercises reviewed Reassurance provided Patient currently denies pain Will continue with surveillance monitoring; will continue with as needed NSAIDs for discomfort if needed Discussed at length lifestyle modifications to assist with erectile dysfunction. Follow-up in 3months; or sooner with any issues, concerns, and or questions. Orders: Orders AMB Urinalysis Automated Today Z13.9 - Encounter for screening, unspecified Patient Instructions: The patient had an opportunity to ask questions regarding the treatment plan. All questions were answered. Physical exam, labs, and imaging were discussed and reviewed in detail. As well as risks, benefits, and discussion of treatment choices. No major barriers to understanding were identified. The patient expressed understanding and agreement with the above treatment plan. The patient was made aware they should contact our office by phone for worsening of their current condition, the appearance of new symptoms, or with any questions or concerns. Compliance is encouraged with any medications and follow up testing that is ordered. It is a privilege to be allowed the opportunity to participate in? your urological care.? Again, if you have any questions or concerns If you have any questions or concerns please do not hesitate to contact me. The office is [phone]. This note is constructed using voice recognition software. While every effort has been made to ensure accuracy miner pick errors may have been included. Yours sincerely, XIMENA Martines Coding Level of Care Code Est Pt Level 3 (47921) Diagnoses Inguinal pain of both sides R10.31; R10.32 Groin pain R10.30 Scrotal pain N50.82 Erectile dysfunction N52.9
== END 2023-09-10 16:27 | disposition home or self-care (01) ==
PROVIDERS: PCP Nurse Practitioner Family; Visit Provider Nurse Practitioner Family
DX: R10.31 Right lower quadrant pain (principal); R10.32 Left lower quadrant pain; R10.30 Lower abdominal pain, unspecified; N50.82 Scrotal pain; N52.9 Male erectile dysfunction, unspecified
CPT/HCPCS: 99213

== ENCOUNTER → 2023-09-10 15:46 | Outpatient (BNVA) | payer OTHER, SELFPAY | PROVIDERS: PCP Nurse Practitioner Family; Visit Provider Nurse Practitioner Family | DX: R10.31 Right lower quadrant pain (principal); R10.32 Left lower quadrant pain; N50.82 Scrotal pain; N52.9 Male erectile dysfunction, unspecified | CPT/HCPCS: 81003 ==

== ENCOUNTER 2023-09-12 10:04 | Outpatient (AMB) | payer OTHER, SELFPAY ==
--- NOTE | 2023-09-12 10:09 | MHC.OFFVIS ---
Intake Vital Signs 09/12/23 10:11 Height 6 ft 3 in Weight 285 lb BMI 35.6 Intake Visit Reasons: OV - Right Knee OA - PRP 06/06/23 Intake Note: Maciel is a 58 year old male who presents today for a follow up of his right knee OA. PRP injection done on 06/06/2023. Patient reports the PRP injection gave him relief until August 16, when he was walking in the parade and stepped in a hole and felt like his knee was going to give out. Since this injury the knee has had increased pain and he is looking to discuss other treatment options such as TKA. Allergies penicillin V Allergy (Severe, Verified 09/12/23 10:12) anaphylaxis, swelling HPI OV - Right Knee OA - PRP 06/06/23 HPI Details Maciel is a 58 year old male who presents today for a follow up of his right knee OA. PRP injection done on 06/06/2023. Patient reports the PRP injection gave him relief until August 16, when he was walking in the parade and stepped in a hole and felt like his knee was going to give out. Since this injury the knee has had increased pain and he is looking to discuss other treatment options such as TKA. He has tried everything and he feels severely limited by his right knee pain. He cannot walk comfortably. he cannot get through the day without pain. He cannot engage in exercise. [facility] Medical History Impacted cerumen of both ears Arthritis of left knee Hypertension Surgical History H/O colonoscopy History of esophagogastroduodenoscopy (EGD) H/O umbilical hernia repair (01/30/22) History of Achilles tendon repair History of medial meniscus repair of left knee History of tonsillectomy History of arthroplasty of left ankle History of hand surgery H/O medial meniscus repair of right knee Social History Housing: House Alcohol intake: current Alcohol intake frequency: holidays/special occasions only Patient Tobacco Use Status: Never used Tobacco e-Cigarette/Vaping Use: Never Used Second Hand Smoke Exposure: No service: Yes Current occupational status: employed Current occupation: [employer] Current occupational exposures/hazards: Yes Cognitive needs: No Hearing needs: No Vision needs: No Physical Exam Vital Signs: BMI result Body Mass Index 35.6 Extrem Other: 5-125 varus knee alignment with ttp medial compartment Results Reviewed Results Reviewed: I personally reviewed relevant radiographs. Moderate to severe right knee tricompartmental osteoarthritis Assessment & Plan Assessment & Plan (1) Osteoarthritis of right knee: Code(s): M17.11 - Unilateral primary osteoarthritis, right knee Plan: 58 yo M with chronic right knee pain secondary to arthritis. He has had injections of steroids/gel and PRP. He has had brief relief but it has always been limited. He would like to be pain free. He has failed non operative management. He is a candidate for right knee arthroplasty which I recommend. I discussed the risks benefits and alternatives including but not limited to the risk of pain, infection, stiffness, need for further surgery as well as potential medical complications such as blood clots, pulmonary embolism and cardiac complications. We will begin our pre operative clearance process. His questions were answered. Coding Level of Care Code Est Pt Level 4 (85869) Diagnoses Osteoarthritis of right knee M17.11
[2023-09-12 10:11] VITALS: BMI 35.6
== END 2023-09-12 10:38 | disposition home or self-care (01) ==
PROVIDERS: PCP Nurse Practitioner Family; Visit Provider Orthopaedic Surgery
DX: M17.11 Unilateral primary osteoarthritis, right knee (principal)
CPT/HCPCS: 99214

== ENCOUNTER → 2023-09-12 10:04 | Outpatient (BNVA) | payer OTHER, SELFPAY | PROVIDERS: PCP Nurse Practitioner Family; Visit Provider Orthopaedic Surgery ==

== ENCOUNTER 2023-10-10 10:03 | Day surgery (SDC) | payer OTHER, SELFPAY ==
--- NOTE | 2023-10-08 15:20 | HO.ANESPROP2 ---
Documented by User: Chantel Artis NP 10/08/23 15:21 HPI - Anesthesia Eval Consult details Narrative: 58yo M for Upper Endoscopy and Colonoscopy PMF Active Problems Active Problems: All Active Problems Erectile dysfunction (Acute) Inguinal pain of both sides (Acute) Groin pain (Acute) Scrotal pain (Acute) Bilateral hip joint arthritis (Acute) Effusion, right knee (Acute) Chronic cough (Acute) Screening for colon cancer (Acute) Impacted cerumen of both ears (Acute) Osteoarthritis of right knee (Acute) Rash (Acute) Physical exam (Acute) Screening PSA (prostate specific antigen) (Acute) Encounter for screening for COVID-19 (Acute) Umbilical hernia (Acute) Past Medical History Medical History Impacted cerumen of both ears Arthritis of left knee Hypertension Family History Family history of problems with anesthesia: No Surgical History Surgical History H/O colonoscopy History of esophagogastroduodenoscopy (EGD) H/O umbilical hernia repair (01/30/22) History of Achilles tendon repair History of medial meniscus repair of left knee History of tonsillectomy History of arthroplasty of left ankle History of hand surgery H/O medial meniscus repair of right knee History of Problems with Anesthesia: No Social History Social History Housing: House Alcohol intake: current Alcohol intake frequency: holidays/special occasions only Patient Tobacco Use Status: Never used Tobacco e-Cigarette/Vaping Use: Never Used Second Hand Smoke Exposure: No Are you DNR?: No Advance Directives: No Advance Directives Information Provided: Yes service: Yes Current occupational status: employed Current occupation: [employer] Current occupational exposures/hazards: Yes Cognitive needs: No Hearing needs: No Vision needs: No Meds Allergies Allergy/AdvReac Type Severity Reaction Status Date / Time penicillin V Allergy Severe anaphylaxis, Verified 09/12/23 10:12 swelling Home Medications ?Medication ?Instructions ?Recorded ?Confirmed ?Last Taken ?Type sildenafil 100 mg tablet (Viagra) 100 mg PO DAILY PRN 09/10/23 09/10/23 Unknown History Assessment and Plan Assessment Anesthesia Assessment: Chart Reviewed Final Anesthetic Review Family History of Problems with Anesthesia: No History of Problems with Anesthesia: No Documented by User: Alayna Hoang MD 10/10/23 11:34 [facility] Past Medical History Medical History Impacted cerumen of both ears Arthritis of left knee Hypertension Surgical History Surgical History H/O colonoscopy History of esophagogastroduodenoscopy (EGD) H/O umbilical hernia repair (01/30/22) History of Achilles tendon repair History of medial meniscus repair of left knee History of tonsillectomy History of arthroplasty of left ankle History of hand surgery H/O medial meniscus repair of right knee Social History Social History Housing: House Alcohol intake: current Alcohol intake frequency: holidays/special occasions only Patient Tobacco Use Status: Never used Tobacco e-Cigarette/Vaping Use: Never Used Second Hand Smoke Exposure: No Are you DNR?: No Advance Directives: No Advance Directives Information Provided: Yes service: Yes Current occupational status: employed Current occupation: [employer] Current occupational exposures/hazards: Yes Cognitive needs: No Hearing needs: No Vision needs: No Meds Allergies Allergy/AdvReac Type Severity Reaction Status Date / Time penicillin V Allergy Severe anaphylaxis, Verified 09/12/23 10:12 swelling Home Medications ?Medication ?Instructions ?Recorded ?Confirmed ?Last Taken ?Type sildenafil 100 mg tablet (Viagra) 100 mg PO DAILY PRN 09/10/23 09/10/23 Unknown History Exam Airway Mallampati Class: II (implant left lateral lower) TM Dist: >3cm Neck ROM: Full Heart: rrr Lungs: cta Assessment and Plan Assessment Anesthesia Assessment: Anesthesia Plan Discussed Final Anesthetic Review NPO: Yes ASA Class: II Final Preanesthetic Review: No Changes in Pt Med Stat, Meds/Allgs Chart Reviewed and Consent Obtained/Reviewed Patient Risk: Low Procedure Risk: Low Anesthetic Plan Anesthetic Plan: MAC: Disposition: Standard PACU
[2023-10-10 10:34] VITALS: BP 130/79; PULSE 82; RESP 18; TEMP 36.4; O2SAT 97; BMI 38.4
[2023-10-10] MEDS: Lactated Ringers 1,000 ML 100 ML IVCONT (10:53)
--- NOTE | 2023-10-10 11:27 | MHC.SHP ---
Pre-Procedural Eval Section A - 24 Hr Update-Section A only Date of Service: 10/10/23 The patient is an INPATIENT: No The patient has been examined within 24 hours of the surgical procedure. The History & Physical has been completed within 30 days and I have reviewed it.: No Section B - Complete if H&P > 30 days Chief Complaint: Colon cancer screening, follow-up of PUD Relevant Family History (Specify if Yes): No Relevant Social History: None Present Medications: see Short Stay Collaborative assessment Medical History: Significant History (Arthritis of left knee Hypertension) History of Previous Operations: Relevant previous surgery/procedure and date(s) (H/O colonoscopy History of esophagogastroduodenoscopy (EGD) H/O umbilical hernia repair (01/30/22) History of Achilles tendon repair History of medial meniscus repair of left knee History of tonsillectomy History of arthroplasty of left ankle History of hand surgery H/O medial meniscus repair of rig) Allergies: Allergies Allergy/AdvReac Type Severity Reaction Status Date / Time penicillin V Allergy Severe anaphylaxis, Verified 09/12/23 10:12 swelling Review of Systems Sugical H&P ROS: Negative: Constitution, Cardiovascular, Respiratory and Gastrointestinal Exam Surgical H&P Exam: Normal: Heart, Normal: Lungs, Normal: Extremities and Normal: Abdomen Plan Diagnosis/Plan: Unchanged I have reviewed the history and physical and performed a pertinent physical examination on my patient. No changes have occurred unless specified. Time Spent With Patient Time: Total time managing care of this patient today ____ minutes.
--- NOTE | 2023-10-10 13:52 | HO.OPN-COLON ---
Colonoscopy Operative Note Operative Note Date of Service: 10/10/23 Narrative: FLEXIBLE TRANSORAL UPPER GASTROINTESTINAL ENDOSCOPY WITH BIOPSIES AND COLONOSCOPY TILL CECUM WITH SNARE POLYPECTOMY Pre-op diagnosis: Colon cancer screening, GERD, FU of PUD Post-op diagnosis: Gastritis, Gastric erosion, Colon Polyps, Diverticulosis, hemorrhoids Endoscopist:? Rosario Rosa MD Anesthesia:?MAC UPPER ENDOSCOPY Consent: Indications for the procedure and potential complications of bleeding, perforation, reaction to medications and missed diagnosis were discussed with the patient and informed consent was obtained. Instrument: Olympus GIF H 190 mid size upper endoscope Monitoring: Vital signs and clinical assessment, continuous EKG monitoring, Pulse oximetry, Carbon Dioxide monitoring and blood pressure monitoring were done throughout the procedure. Procedure: The patient was placed in the left lateral decubitis position and pre-procedure medications were administered and a bite block was placed. The endoscope was inserted into the mouth and advanced under direct vision to the third part of duodenum. A careful inspection was made as the upper endoscope was withdrawn including a retroflexed examination of the proximal stomach; Findings and interventions are described below. Findings: Larynx: Normal Esophagus: GE junction at 40 cms. No Ray's. Stomach: Mild gastric antral erythema - biopsies were obtained from the antrum. A 2 cms linear chronic appearing erosion in the antrum - biopsies were obtained. Grade 2 flap valve on retroflexed examination of the cardia. Duodenum: Normal bulb and descending duodenum Intervention: Biopsies as noted above COLONOSCOPY PROCEDURE NOTE Instrument: Olympus CF H 190 L variable stiffness adult colonoscope Monitoring: Vital signs and clinical assessment, intermittent blood pressure monitoring, continuous EKG monitoring, Pulse oximetry and Carbon Dioxide monitoring were done throughout the procedure. Please see anesthesia flowsheet. Colon withdrawl time was 19 minutes. Procedure: The patient was placed in the left lateral decubitis position and pre-procedure medications were administered. After a digital rectal examination of the ano-rectum, the video colonoscope was inserted into the rectum and advanced through the colon to the cecum. The colonoscope was slowly withdrawn in a retrograde panoramic fashion and the colon mucosa was carefully examined including a retroflexed view of the rectum. Findings and interventions are described below. Procedure Difficulty: Colon was long and there was some loop formation. LLQ pressure was applied to intubate the cecum Findings: Terminal Ileum: Not evaluated Cecum: Normal Ascending Colon: Normal Transverse Colon: Normal Descending Colon: Moderate diverticulosis Sigmoid Colon: Moderate diverticulosis Rectum: A 5-6 mm sessile polyp - removed with a cold snare Ano-rectum: Moderate internal hemorrhoids Colon preparation: Good after some irrigation. [place] Bowel Preparation Scale Right colon; 2 Transverse colon: 2 Left colon; 2 (0 = Unprepared colon segment with mucosa not seen due to solid stool that cannot be cleared. 1 = Portion of mucosa of the colon segment seen, but other areas of the colon segment not well seen due to staining, residual stool and/or opaque liquid. 2 = Minor amount of residual staining, small fragments of stool and/or opaque liquid, but mucosa of colon segment seen well. 3 = Entire mucosa of colon segment seen well with no residual staining, small fragments of stool or opaque liquid) Impression and Post Procedure Diagnosis: Endoscopy Findings: STOMACH: Mild gastric antral erythema - biopsies were obtained from the antrum. A 2 cms linear chronic appearing erosion in the antrum - biopsies were obtained. Colonoscopy Findings: One small polyp was removed Moderate diverticulosis seen in the left colon Moderate hemorrhoids on retroflexed exam. Plan: I will send a letter with biopsy results Repeat Colonoscopy in 5 years if polyps are adenomatous and due to history of adenomatous colon polyps. Above findings were reviewed with the patient and relevant handouts were given and the discharge area.
[2023-10-10 14:31] VITALS: BP 126/74; PULSE 79; RESP 16; TEMP 36.1; O2SAT 96
[2023-10-10 14:46] VITALS: BP 136/73; PULSE 69; RESP 18; TEMP 36.7; O2SAT 97
== END 2023-10-10 15:06 | disposition home or self-care (01) ==
PROVIDERS: PCP Nurse Practitioner Family; Visit Provider Internal Medicine Gastroenterology
PROC: (CPT 45385; principal; 2023-10-10 12:30)
DX: Z12.11 Encounter for screening for malignant neoplasm of colon (principal); K62.1 Rectal polyp; K57.30 Diverticulosis of large intestine without perforation or abscess without bleeding; K56.2 Volvulus; K64.8 Other hemorrhoids; K21.9 Gastro-esophageal reflux disease without esophagitis; K29.70 Gastritis, unspecified, without bleeding; K25.9 Gastric ulcer, unspecified as acute or chronic, without hemorrhage or perforation; Z87.11 Personal history of peptic ulcer disease; Z88.0 Allergy status to penicillin
CPT/HCPCS: 45385; 43239; 88305; 88313; 88342; J2704

== ENCOUNTER → 2023-10-10 10:03 | Outpatient (BNV) | payer OTHER, SELFPAY | PROVIDERS: PCP Nurse Practitioner Family; Visit Provider Internal Medicine Gastroenterology | DX: Z12.11 Encounter for screening for malignant neoplasm of colon (principal); K62.1 Rectal polyp; K57.90 Diverticulosis of intestine, part unspecified, without perforation or abscess without bleeding; K64.8 Other hemorrhoids; K21.9 Gastro-esophageal reflux disease without esophagitis; K29.70 Gastritis, unspecified, without bleeding; K25.9 Gastric ulcer, unspecified as acute or chronic, without hemorrhage or perforation | CPT/HCPCS: 43239; 45385 ==

== ENCOUNTER 2023-10-29 11:27 | Outpatient (AMB) | payer OTHER, SELFPAY ==
--- NOTE | 2023-10-29 11:28 | A.OFFVIS_ITS ---
Vital Signs 10/29/23 11:30 Height 6 ft 3 in Weight 310 lb 13.628 oz BMI 38.8 BP 164/86 H Blood Pressure Location Lt brachial Position Sitting Pulse 72 Intake Visit Reasons: EGD/Colonoscopy Intake Note: Maciel presents in the office as a follow up EGD and COLO. CC: HE states that he is not having any concerns just here for the results. Allergies penicillin V Allergy (Severe, Verified 10/29/23 11:31) anaphylaxis, swelling HPI HPI EGD/Colonoscopy: Details: LAST VISIT Screening for colon cancer History of gastric ulcer GERD (gastroesophageal reflux disease) Plan Patient denies any GI, cardiac or respiratory symptoms.? Occasional symptoms of acid reflux and epigastric discomfort. Patient was encouraged to stop taking ibuprofen and if he does have to take it due to his joint pain he must take it with food. Currently patient is not on any PPI. Will send him for upper endoscopy to rule out gastric ulcer, gastritis, esophagitis, peptic ulcer. Denies any issues with anesthesia in the past.? Denies any history of sleep apnea.? No history infectious diseases in the past or present.? Not on any antic oagulation therapy.? No family or personal history of colon cancer.? Patient denies melena, hematochezia, unintentional weight loss or ribbon like stools.? Discussed at length the pre-procedure,? prep, diet & medications as well as what to expect prior, during and after the procedure.?? Stressed the importance of good bowel prep. ?Recommended the use of Vaseline or Calmoseptine OTC & baby wipes with bowel movements to promote comfort.? ?Patient verbalizes understanding and agrees to plan of care.? He was given the opportunity to ask questions and all questions answered.? We will see him after the procedure.? Medications New bisacodyl (Dulcolax (bisacodyl)) take 4 tabs at noon the day before your colonoscopy 20 mg (4 x 5 mg) PO ONCE 1 day 4 tabs 0RF Z12.11 polyethylene glycol 3350 (Miralax) As directed by gastroenterology department at [facility] 238 grams PO ONCE 238 grams 0RF Z12.11 UPPER ENDOSCOPY AND COLONOSCOPY Findings: Larynx: Normal Esophagus: GE junction at 40 cms. No Ray's. Stomach: Mild gastric antral erythema - biopsies were obtained from the antrum. A 2 cms linear chronic appearing erosion in the antrum - biopsies were obtained. Grade 2 flap valve on retroflexed examination of the cardia. Duodenum: Normal bulb and descending duodenum Intervention: Biopsies as noted above Findings: Terminal Ileum: Not evaluated Cecum: Normal Ascending Colon: Normal Transverse Colon: Normal Descending Colon: Moderate diverticulosis Sigmoid Colon: Moderate diverticulosis Rectum: A 5-6 mm sessile polyp - removed with a cold snare Ano-rectum: Moderate internal hemorrhoids Colon preparation: Good after some irrigation. [place] Bowel Preparation Scale Right colon; 2 Transverse colon: 2 Left colon; 2 (0 = Unprepared colon segment with mucosa not seen due to solid stool that cannot be cleared. 1 = Portion of mucosa of the colon segment seen, but other areas of the colon segment not well seen due to staining, residual stool and/or opaque liquid. 2 = Minor amount of residual staining, small fragments of stool and/or opaque liquid, but mucosa of colon segment seen well. 3 = Entire mucosa of colon segment seen well with no residual staining, small fragments of stool or opaque liquid) Impression and Post Procedure Diagnosis: Endoscopy Findings: STOMACH: Mild gastric antral erythema - biopsies were obtained from the antrum. A 2 cms linear chronic appearing erosion in the antrum - biopsies were obtained. Colonoscopy Findings: One small polyp was removed Moderate diverticulosis seen in the left colon Moderate hemorrhoids on retroflexed exam. Plan: I will send a letter with biopsy results Repeat Colonoscopy in 5 years if polyps are adenomatous and due to history of adenomatous colon polyps. PATHOLOGY RESULTS Diagnosis A. Stomach, antrum, biopsy: Gastric antral mucosa with mild chronic inactive gastritis; negative for Helicobacter pylori, intestinal metaplasia and dysplasia. B. Stomach, erosion, biopsy: Gastric antral mucosa with mild reactive gastropathy; negative for Helicobacter pylori, intestinal metaplasia and dysplasia. C. Rectum, polypectomy: Hyperplastic polyp. TODAY'S VISIT Patient is here today for follow-up and to discuss upper endoscopy and colonoscopy. Patient denies any ill effects from the prep, anesthesia or procedure itself. Patient reports that he has been feeling well except for epigastric discomfort when he wakes up in the morning. Mild small erosion noted in his stomach without dysplasia. No H pylori found. Patient will need to be on PPI treatment. One small rectal polyp hyperplastic, however due to history of tubular adenomas in the past patient will need to repeat colonoscopy in 5 years. Patient denies any other GI concerning symptoms. Moving his bowels well. Denies melena, hematochezia. [facility] Medical History (Updated 10/29/23 @ 11:59 by Janie Rivera [facility]-) Diverticulosis Impacted cerumen of both ears Arthritis of left knee Hypertension Surgical History H/O colonoscopy History of esophagogastroduodenoscopy (EGD) H/O umbilical hernia repair (01/30/22) History of Achilles tendon repair History of medial meniscus repair of left knee History of tonsillectomy History of arthroplasty of left ankle History of hand surgery H/O medial meniscus repair of right knee Social History Housing: House Alcohol intake: current Alcohol intake frequency: holidays/special occasions only Patient Tobacco Use Status: Never used Tobacco e-Cigarette/Vaping Use: Never Used Second Hand Smoke Exposure: No service: Yes Current occupational status: employed Current occupation: [employer] Current occupational exposures/hazards: Yes Cognitive needs: No Hearing needs: No Vision needs: No Review of Systems Const Denies weight gain and Denies weight loss ENT Reports no additional complaints, Denies dysphagia and Denies odynophagia Card Reports no additional complaints Resp Reports no additional complaints GI Denies abdominal pain, Denies belching, Denies melena, Denies bloating, Denies change in bowel habits, Denies dysphagia, Denies excessive flatus, Reports dyspepsia (Mostly in the morning), Reports heartburn, Denies diarrhea, Denies loose stools, Denies nausea, Denies odynophagia and Denies vomiting Reports no additional complaints Musc Reports no additional complaints Neuro Reports no additional complaints Psych Reports no additional complaints Endo Reports no additional complaints Physical Exam Vital Signs: Last Vital Signs Pulse 72 10/29/23 11:30 BP 164/86 H 10/29/23 11:30 BMI result Body Mass Index 38.8 Const General: healthy appearing, no acute distress and well developed Nutritional Appearance: obese Orientation/consciousness: patient oriented x3 Resp Effort & Inspection: normal respiratory effort, able to speak in complete sentences, no tracheal deviation and symmetric chest movement Auscultation: clear to auscultation bilaterally Cardio Rate: regular rate GI Inspection: Yes normal to inspection, No distended and Yes obesity Palpation (GI): Soft to palpation, not firm, nontender and No hepatosplenomegaly present Auscultation: normal bowel sounds General: Yes no CVA tenderness Back/Spine/Pelvis Back: no CVA tenderness Skin General skin exam: elasticity normal, turgor normal and dry skin Neuro General: patient oriented x3 Psych Appearance: grossly normal Mental Status: mental status grossly normal Affect: normal affect Assessment & Plan Assessment & Plan (1) Diverticulosis: Code(s): K57.90 - Diverticulosis of intestine, part unspecified, without perforation or abscess without bleeding Category: Medical (2) Status post colonoscopy: Code(s): Z98.890 - Other specified postprocedural states (3) Hemorrhoids without complication: Code(s): K64.9 - Unspecified hemorrhoids (4) GERD (gastroesophageal reflux disease): Code(s): K21.9 - Gastro-esophageal reflux disease without esophagitis Qualifiers: Esophagitis presence: without esophagitis Qualified Code(s): K21.9 - Gastro-esophageal reflux disease without esophagitis Plan Continue high-fiber diet. Patient will start omeprazole in the morning and famotidine at bedtime. Patient will avoid dietary triggers and late night snacking. Staying upright for minimum 3 hours after meals discussed with patient. He will return to the office in 6 months to see if he will need to continue on omeprazole. He will call our office sooner if will have any GI concerning symptoms. He is agreeable to this plan and verbalizes understanding of instructions. He was given the opportunity to ask questions and all questions answered. Thank you for allowing me to participate in his care Medications: New famotidine (Pepcid) 20 mg PO BEDTIME 30 tabs 5RF K21.9 - Gastro-esophageal r eflux disease without esophagitis omeprazole 20 mg PO DAILY 30 caps 5RF K21.9 - Gastro-esophageal reflux disease without esophagitis Coding Level of Care Code Est Pt Level 4 (00950) Diagnoses Diverticulosis K57.90 Status post colonoscopy Z98.890 Hemorrhoids without complication K64.9 Gastroesophageal reflux disease without esophagitis K21.9 Esophagitis presence: without esophagitis Time Spent (min) 35 Comment 20 minutes spent with patient and additional 15 minutes spent reviewing his records
[2023-10-29 11:30] VITALS: BP 164/86; PULSE 72; BMI 38.8
== END 2023-10-29 12:04 | disposition home or self-care (01) ==
PROVIDERS: PCP Nurse Practitioner Family; Visit Provider Nurse Practitioner Family
DX: K57.90 Diverticulosis of intestine, part unspecified, without perforation or abscess without bleeding (principal); Z98.890 Other specified postprocedural states; K64.9 Unspecified hemorrhoids; K21.9 Gastro-esophageal reflux disease without esophagitis
CPT/HCPCS: 99214

== ENCOUNTER → 2023-10-29 11:27 | Outpatient (BNVA) | payer OTHER, SELFPAY | PROVIDERS: PCP Nurse Practitioner Family; Visit Provider Nurse Practitioner Family ==

== ENCOUNTER 2023-11-19 08:04 | Outpatient (AMB) | payer OTHER, SELFPAY ==
--- NOTE | 2023-11-19 08:09 | AM.OFFWIN_ITS ---
Intake Vital Signs 3 11/19/23 08:10 Height 6 ft 3 in Weight 314 lb BMI 39.2 BP 130/80 Blood Pressure Location Lt brachial Position Sitting Pulse 79 Pulse Source Pulse Oximeter Pulse Oximetry (%) 97 Oxygen Delivery Method Room Air Intake Visit Reasons: EP Cut on tongue Intake Note: Patient here for cut on tongue that he noticed Friday night. Patient Tobacco Use Status: Never used Tobacco Allergies penicillin V Allergy (Severe, Verified 11/19/23 08:11) anaphylaxis, swelling Do you need a note to return to daycare/school/sports/work: No HPI HPI Comments 2 History of Present Illness0 Details Patient is a 58-year-old male complaining of biting his tongue 2 days ago. He states he was watching the self esteem and eating [place] food when the next thing he realized his tongue was bleeding. He was able to control the bleeding with some valarie. He is concerned because he has not sure if this little piece on his tongue is going to fall off or if he should rip it off. He does see a dentist regularly. He denies any cigarette smoking, cigar smoking or nicotine use. [facility] Medical History (Updated 11/19/23 @ 08:50 by Aria Marquez PA-C) Diverticulosis Impacted cerumen of both ears Arthritis of left knee Hypertension Surgical History H/O colonoscopy History of esophagogastroduodenoscopy (EGD) H/O umbilical hernia repair (01/30/22) History of Achilles tendon repair History of medial meniscus repair of left knee History of tonsillectomy History of arthroplasty of left ankle History of hand surgery H/O medial meniscus repair of right knee Social History Housing: House Alcohol intake: current Alcohol intake frequency: holidays/special occasions only Patient Tobacco Use Status: Never used Tobacco e-Cigarette/Vaping Use: Never Used Second Hand Smoke Exposure: No service: Yes Current occupational status: employed Current occupation: [employer] Current occupational exposures/hazards: Yes Cognitive needs: No Hearing needs: No Vision needs: No Review of Systems Const All systems reviewed & are unremarkable except as noted in HPI and below Physical Exam Vital Signs: Last Vital Signs Pulse 79 11/19/23 08:10 BP 130/80 11/19/23 08:10 Pulse Ox 97 11/19/23 08:10 Oxygen Delivery Method Room Air 11/19/23 08:10 BMI result Body Mass Index 39.2 Const General: cooperative, healthy appearing, comfortable, no acute distress and well developed Orientation/consciousness: patient oriented x3 Limitations: no limitations HEENT Other: Head: Yes normal to inspection Ears: hearing grossly normal bilaterally and external ears normal General nose exam: Normal external nose present Face and sinus: Yes normal facial exam Mouth: tongue abnormal (central tongue has 0.5cm flap with dark area at base) Eyes General: appearance normal, both eyes and all related structures Resp Effort & Inspection: normal respiratory effort and able to speak in complete sentences Neuro General: patient oriented x3 Assessment & Plan Assessment & Plan (1) Tongue laceration: Code(s): S01.512A - Laceration without foreign body of oral cavity, initial encounter Qualifiers: Encounter type: initial encounter Qualified Code(s): S01.512A - Laceration without foreign body of oral cavity, initial encounter Plan: Likely done while patient was eating however based on the appearance and location, it is concerning. Recommended if it has not improving and better within the next 5-7 days to follow up with his dentist for a biopsy. Plan see above Coding Level of Care Code Est Pt Level 3 (10999) Diagnoses Laceration of tongue, initial encounter S01.512A Encounter type: initial encounter
[2023-11-19 08:10] VITALS: BP 130/80; PULSE 79; O2SAT 97; BMI 39.2
== END 2023-11-19 09:23 | disposition home or self-care (01) ==
PROVIDERS: PCP Nurse Practitioner Family; Visit Provider Physician Assistant
DX: S01.512A Laceration without foreign body of oral cavity, initial encounter (principal)
CPT/HCPCS: 99213

== ENCOUNTER → 2024-02-13 13:37 | Outpatient (REF) | payer BC, SELFPAY ==
--- NOTE | 2024-02-13 13:52 | ECG_ITS ---
Test Reason : abn ekg Blood Pressure : / mmHG Vent. Rate : 072 BPM Atrial Rate : 072 BPM P-R Int : 192 ms QRS Dur : 090 ms QT Int : 366 ms P-R-T Axes : 016 025 035 degrees QTc Int : 400 ms Normal sinus rhythm Normal ECG When compared with ECG of 26-OCT-2011 15:50, No significant change was found Referred By: Jasmeet Mariano Electronically Signed By:TO LAI
== END ==
LOC: HO.CARD 13:37
PROVIDERS: PCP Nurse Practitioner Family; Visit Provider Nurse Practitioner Family
DX: R94.31 Abnormal electrocardiogram [ECG] [EKG] (principal)
CPT/HCPCS: 93005

== ENCOUNTER 2024-02-23 14:52 | Outpatient (AMB) | payer BC, SELFPAY ==
--- NOTE | 2024-02-23 14:56 | A.OFFVIS_ITS ---
Intake Visit Reasons: 3m follow up Intake Note: Patient presents today for follow up on: Erectile Dysfunction, Scrotal Pain, and Groin Pain Urology Medications: Sildenafil Blood Thinner: none Theater Manager Required: No Accompanied by: Self / Same As Patient Allergies penicillin V Allergy (Severe, Verified 02/23/24 16:42) anaphylaxis, swelling Medication List - Last Reconciled 02/23/24 by XIMENA Martines hydrochlorothiazide 12.5 mg PO DAILY 90 days lisinopril 10 mg PO DAILY 90 days sildenafil (Viagra) 100 mg PO DAILY PRN HPI Comments Details: Maciel is a very pleasant 58-year-old male patient of Dr. Ma. He has a past medical history of bilateral arthritis of knees and hypertension. He presents to the office today for follow-up of his left-sided groin pain, scrotal pain and erectile dysfunction. In discussion with the patient today reports since his last office visit here approximately 5 months ago he has had no bothersome scrotal discomfort or pain. He reports having completed Mobic as prescribed and feels he has had no issues. Previous workup has included a scrotal ultrasound noting no findings to explain symptoms of testicular pain. 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 He has a history of having a vasectomy approximately 20 years ago at [facility]. He currently denies any bothersome urinary issues or concerns. He reports to be happy with his maintaining and obtaining of erections with p.r.n. Viagra. We did discussed at length lifestyle modifications to assist with erectile dysfunction. In office urinalysis results reviewed with the patient today. He otherwise offers no other issues or concerns at this time. [facility] Medical History Diverticulosis Impacted cerumen of both ears Arthritis of left knee Hypertension Surgical History H/O colonoscopy History of esophagogastroduodenoscopy (EGD) H/O umbilical hernia repair (01/30/22) History of Achilles tendon repair History of medial meniscus repair of left knee History of tonsillectomy History of arthroplasty of left ankle History of hand surgery H/O medial meniscus repair of right knee Social History Housing: House Alcohol intake: current Alcohol intake frequency: holidays/special occasions only Patient Tobacco Use Status: Never used Tobacco e-Cigarette/Vaping Use: Never Used Second Hand Smoke Exposure: No service: Yes Current occupational status: employed Current occupation: [employer] Current occupational exposures/hazards: Yes Cognitive needs: No Hearing needs: No Vision needs: No Review of Systems Const Reports as per HPI Eyes Reports no additional complaints ENT Reports no additional complaints Card Reports as per HPI Resp Reports no additional complaints GI Reports no additional complaints Reports as per HPI Musc Reports as per HPI Neuro Reports no additional complaints Psych Reports no additional complaints Endo Reports no additional complaints Quintin/Lymph Reports no additional complaints Aller/Immun Reports no additional complaints Physical Exam Const General: cooperative, healthy appearing, comfortable, no acute distress, well developed, alert and awake Orientation/consciousness: patient oriented x3 Limitations: no limitations HEENT Head: Yes normal to inspection, Yes normocephalic and Yes atraumatic Ears: hearing grossly normal bilaterally Eyes General: appearance normal, both eyes and all related structures Neck Neck: Yes normal visual inspection and Yes trachea midline Chest Chest palpation & inspection: normal inspection of the chest Resp Effort & Inspection: normal respiratory effort and able to speak in complete sentences Cardio Rate: regular rate GI Inspection: Yes normal to inspection General: Yes no CVA tenderness Penis: normal penis and circumcised Meatus: meatus normal Scrotum: scrotum normal Testes: Testes normal Back/Spine/Pelvis Back: no CVA tenderness Skin General skin exam: no rashes or lesions noted Neuro General: patient oriented x3 Extrem General: Yes normal to inspection Psych Appearance: grossly normal and well kempt Mental Status: mental status grossly normal Speech and movement: Normal speech and movement present and Clear speech present Affect: normal affect Attitude: cooperative Thought process: Normal thought process present Thought content: Normal thought content present Results AMB Urinalysis, Automated UA Leukoctes 0 Vinicius/uL Last Edit by Sancho Coulter on 02/23/24 15:13 UA Nitrite Last Edit by Sancho Coulter on 02/23/24 15:13 UA Urobilinogen 0.2 mg/dL Last Edit by Sancho Coulter on 02/23/24 15:13 UA Protein 0 mg/dL Last Edit by Sancho Coulter on 02/23/24 15:13 UA pH 6.0 Last Edit by Sancho Coulter on 02/23/24 15:13 UA Blood 0 Yusuf/uL Last Edit by Sancho Coulter on 02/23/24 15:13 UA Specific [place] 1.025 Last Edit by Sancho Coulter on 02/23/24 15:13 UA Ketone Negative Last Edit by Sancho Coulter on 02/23/24 15:13 UA Bilirubin 0 mg/dL Last Edit by Sancho Coulter on 02/23/24 15:13 UA Glucose 0 mg/dL Last Edit by Sancho Coulter on 02/23/24 15:13 Results Reviewed Results Reviewed: Laboratory Last Values Urine pH (Auto) 6.0 02/23/24 15:06 Specific [place] (Auto) 1.025 02/23/24 15:06 Urine Protein (Auto) 0 mg/dL 02/23/24 15:06 Glucose (UA)(Auto) 0 mg/dL 02/23/24 15:06 Urine Ketones (Auto) Negative 02/23/24 15:06 Urine Blood (Auto) 0 Yusuf/uL 02/23/24 15:06 Urine Bilirubin (Auto) 0 mg/dL 02/23/24 15:06 Urine Urobilinogen (Auto) 0.2 mg/dL 02/23/24 15:06 Leukocyte Esterase (Auto) 0 Vinicius/uL 02/23/24 15:06 Assessment & Plan Assessment & Plan (1) Inguinal pain of both sides: Code(s): R10.31 - Right lower quadrant pain; R10.32 - Left lower quadrant pain Category: Medical (2) Groin pain: Code(s): R10.30 - Lower abdominal pain, unspecified Category: Medical (3) Scrotal pain: Code(s): N50.82 - Scrotal pain Category: Medical (4) Erectile dysfunction: Code(s): N52.9 - Male erectile dysfunction, unspecified Category: Medical Plan In office urinalysis results reviewed with the patient today; as noted above. . Patient denies any bothersome urinary issues. He reports be happy with current voiding parameters. Discussed at length potential causes of generalized inguinal pain patient had been experiencing Discussed and stressed the importance of stretching; stretching exercises reviewed. Patient currently denies pain. Will continue with surveillance monitoring; will continue with as needed NSAIDs for discomfort if needed. Discussed at length lifestyle modifications to assist with erectile dysfunction. Will obtain PSA for surveillance monitoring. Follow-up in one year; or sooner with any issues, concerns, and or questions. Orders: Orders Prostate Specific Antigen 1 Year N40.0 - Benign prostatic hyperplasia without lower urinary tract symptoms AMB Urinalysis Automated Today Z13.9 - Encounter for screening, unspecified Medications: New meloxicam 15 mg PO .prn 30 days PRN 30 tabs 0RF pain R10.31 - Right lower quadrant pain, R10.32 - Left lower quadrant pain Patient Instructions: The patient had an opportunity to ask questions regarding the treatment plan. All questions were answered. Physical exam, labs, and imaging were discussed and reviewed in detail. As well as risks, benefits, and discussion of treatment choices. No major barriers to understanding were identified. The patient expressed understanding and agreement with the above treatment plan. The patient was made aware they should contact our office by phone for worsening of their current condition, the appearance of new symptoms, or with any questions or concerns. Compliance is encouraged with any medications and follow up testing that is ordered. It is a privilege to be allowed the opportunity to participate in? your urological care.? Again, if you have any questions or concerns If you have any questions or concerns please do not hesitate to contact me. The office is [phone]. This note is constructed using voice recognition software. While every effort has been made to ensure accuracy workforce specialist errors may have been included. Yours sincerely, XIMENA Martines Coding Level of Care Code Est Pt Level 3 (86207) Complex EM visit Add On G2211 Diagnoses Inguinal pain of both sides R10.31; R10.32 Groin pain R10.30 Scrotal pain N50.82 Erectile dysfunction N52.9
== END 2024-02-23 15:35 | disposition home or self-care (01) ==
PROVIDERS: PCP Nurse Practitioner Family; Visit Provider Nurse Practitioner Family
DX: R10.31 Right lower quadrant pain (principal); R10.32 Left lower quadrant pain; R10.30 Lower abdominal pain, unspecified; N50.82 Scrotal pain; N52.9 Male erectile dysfunction, unspecified; Z13.9 Encounter for screening, unspecified
CPT/HCPCS: 99213

== ENCOUNTER → 2024-02-23 14:52 | Outpatient (BNVA) | payer BC, SELFPAY | PROVIDERS: PCP Nurse Practitioner Family; Visit Provider Nurse Practitioner Family | DX: R10.31 Right lower quadrant pain (principal); R10.32 Left lower quadrant pain; N50.82 Scrotal pain; N52.9 Male erectile dysfunction, unspecified | CPT/HCPCS: 81003 ==

== ENCOUNTER 2024-02-25 12:31 | Outpatient (AMB) | payer BC, SELFPAY ==
--- NOTE | 2024-02-25 12:32 | A.OFFVIS_ITS ---
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 Any case, he had an EKG done as pre-employment physical. That showed concern for QT prolongation hence he is referred here. Patient himself does not have any known cardiac issues. He has got absolutely no symptoms like angina or shortness of breath or in fact anything cardiac sounding. He is fully active with no limitations whatsoever. No major family history of cardiac issues either. [facility] Medical History Diverticulosis Impacted cerumen of both ears Arthritis of left knee Hypertension Surgical History H/O colonoscopy History of esophagogastroduodenoscopy (EGD) H/O umbilical hernia repair (01/30/22) History of Achilles tendon repair History of medial meniscus repair of left knee History of tonsillectomy History of arthroplasty of left ankle History of hand surgery H/O medial meniscus repair of right knee Family History (Updated 02/25/24 @ 12:38 by Fide Murray CMA) Father Kidney failure DM type 2 (diabetes mellitus, type 2) Mother Alzheimer dementia Social History Housing: House Alcohol intake: current Alcohol intake frequency: holidays/special occasions only Patient Tobacco Use Status: Never used Tobacco e-Cigarette/Vaping Use: Never Used Second Hand Smoke Exposure: No service: Yes Current occupational status: employed Current occupation: [employer] Current occupational exposures/hazards: Yes Cognitive needs: No Hearing needs: No Vision needs: No Review of Systems Const Denies chills, Denies daytime sleepiness, Denies fatigue, Denies fever(s), Denies poor appetite, Denies snoring, Denies stops breathing during sleep, Denies weakness, Denies weight gain and Denies weight loss Eyes Denies loss of vision ENT Denies dizziness and Denies hearing loss Card Denies chest pain, Denies irregular heart rhythm, Denies claudication, Denies leg edema, Denies lightheadedness, Denies palpitations, Denies dyspnea on exertion and Denies orthopnea Resp Denies cough, Denies excessive phlegm production, Denies dyspnea on exertion, Denies snoring and Denies wheezing GI Denies abdominal pain, Denies hematochezia, Denies change in bowel habits, Denies nausea and Denies vomiting Denies dysuria and Denies urinary frequency Musc Denies arthralgias, Denies muscle weakness, Denies numbness and Denies other Skin/Breast Denies nail changes and Denies rash Neuro Denies Abnormal speech present, Denies dizziness, Denies loss of vision, Denies memory loss, Denies numbness and Denies weakness Psych Denies depression and Denies memory loss Endo Denies fatigue and Denies palpitations Quintin/Lymph Denies easy bruising Aller/Immun Denies wheezing Physical Exam Vital Signs: Last Vital Signs Pulse 73 02/25/24 12:33 BP 134/76 02/25/24 12:33 BMI result Body Mass Index 38.4 Const General: comfortable and no acute distress Orientation/consciousness: patient oriented x3 HEENT Other: Unremarkable Head: Yes normal to inspection Neck Neck: Yes normal visual inspection Chest Chest palpation & inspection: normal inspection of the chest Resp Auscultation: clear to auscultation bilaterally Cardio Palpation: normal PMI Heart sounds: S1 normal heart sound present, S2 normal heart sound present, no gallops, no murmurs and no rubs GI Palpation (GI): Soft to palpation Back/Spine/Pelvis Other: unremarkable Skin General skin exam: no rashes or lesions noted Neuro General: patient oriented x3 Speech: No Abnormal speech present Extrem General: Yes normal to inspection Psych Mental Status: mental status grossly normal Office Procedures EKG Details: EKG with underlying sinus rhythm at 73/Min; no significant ST-T changes and otherwise unremarkable. Normal OK and corrected QT. Corrected QT is 407 milliseconds. [id number], Complete Assessment & Plan Assessment & Plan (1) Pre-employment examination: Code(s): Z02.1 - Encounter for pre-employment examination Category: Medical Plan Clinically, patient has got absolutely no symptoms. In the initial EKG from urgent Care, current QT reported as 473 milliseconds but I suspect the calculation is erroneous. Difficult to manually calculate as the grids are not seen well on the faxed copy but visually there is no suggestion of QT prolongation. This was repeated on the 12 of February and that shows normal corrected QT at 400 milliseconds. Once again repeated today and shows corrected QT of 407 milliseconds. In the EKG from 2011, corrected QT is 423 milliseconds. Overall, do not believe he has any QT prolongation. This does not require any further workup. He is cleared to proceed with his employment in that perspective. With regard to overall cardiovascular risk profile, he does have obesity, hypertension. Hence we discussed about a screening coroanry calcium score and he is willing to consider that. If any significant abnormalities, we will address accordingly. Orders: Orders CT Coronary Calcium Score Today I25.10 - Atherosclerotic heart disease of [place] coronary artery without angina pectoris Coding Level of Care Code New Pt Level 3 (91349) Diagnoses Pre-employment examination Z02.1 CPT Codes EKG - CPT: 58575-[id number], Complete ([id number])
[2024-02-25 12:33] VITALS: BP 134/76; PULSE 73; BMI 38.4
== END 2024-02-25 13:01 | disposition home or self-care (01) ==
PROVIDERS: PCP Nurse Practitioner Family; Visit Provider Internal Medicine
DX: R94.31 Abnormal electrocardiogram [ECG] [EKG] (principal)
CPT/HCPCS: 93010; 99203

== ENCOUNTER → 2024-02-25 12:31 | Outpatient (BNVA) | payer BC, SELFPAY | PROVIDERS: PCP Nurse Practitioner Family; Visit Provider Internal Medicine | DX: R94.31 Abnormal electrocardiogram [ECG] [EKG] (principal) | CPT/HCPCS: 93005 ==

== ENCOUNTER 2024-05-22 11:01 | Outpatient (AMB) | payer BC, SELFPAY ==
[2024-05-22 12:15] VITALS: BP 130/80; PULSE 79; TEMP 36.6; O2SAT 97; BMI 26.7
--- NOTE | 2024-05-22 12:15 | AM.OFFWIN_ITS ---
Intake Vital Signs 05/22/24 12:15 Height 6 ft 3 in Weight 214 lb BMI 26.7 BP 130/80 Blood Pressure Location Lt brachial Position Sitting Pulse 79 Pulse Source Pulse Oximeter Temp 97.8 F Temp Source Oral Pulse Oximetry (%) 97 Oxygen Delivery Method Room Air Intake Visit Reasons: EP cut behind RT ear Intake Note: Cut behind R ear Patient Tobacco Use Status: Never used Tobacco Allergies penicillin V Allergy (Severe, Verified 05/22/24 12:39) anaphylaxis, swelling HPI EP cut behind RT ear HPI Details Pt is here today c/o Rt ear cut due to carrying a armour that slipped on his Rt side of ear. [facility], [facility] Medical History (Updated 05/22/24 @ 13:13 by Gus Odom MD) CAD (coronary artery disease) Diverticulosis Impacted cerumen of both ears Arthritis of left knee Hypertension Surgical History H/O colonoscopy History of esophagogastroduodenoscopy (EGD) H/O umbilical hernia repair (01/30/22) History of Achilles tendon repair History of medial meniscus repair of left knee History of tonsillectomy History of arthroplasty of left ankle History of hand surgery H/O medial meniscus repair of right knee Family History (Updated 02/25/24 @ 12:38 by Fide Murray CMA) Father Kidney failure DM type 2 (diabetes mellitus, type 2) Mother Alzheimer dementia Social History Housing: House Alcohol intake: current Alcohol intake frequency: holidays/special occasions only Patient Tobacco Use Status: Never used Tobacco e-Cigarette/Vaping Use: Never Used Second Hand Smoke Exposure: No service: Yes Current occupational status: employed Current occupation: [employer] Current occupational exposures/hazards: Yes Cognitive needs: No Hearing needs: No Vision needs: No Review of Systems Const Denies chills, Denies fatigue, Denies fever(s), Denies headache(s) and Denies weakness ENT Details: R Ear: See HPI Denies dizziness and Denies headache(s) Card Denies dyspnea Resp Denies cough, Denies dyspnea, Denies wheezing and Denies other ( shortness of breath) Musc Denies numbness and Denies tingling Neuro Denies dizziness, Denies headache(s), Denies numbness, Denies tingling, Denies paresthesias and Denies weakness Psych Denies anxiety and Denies depression Endo Denies fatigue Aller/Immun Denies wheezing Physical Exam Vital Signs: Last Vital Signs Temp 97.8 F 05/22/24 12:15 Pulse 79 05/22/24 12:15 BP 130/80 05/22/24 12:15 Pulse Ox 97 05/22/24 12:15 Oxygen Delivery Method Room Air 05/22/24 12:15 BMI result Body Mass Index 26.7 Const General: no acute distress and well developed Nutritional Appearance: well nourished Orientation/consciousness: patient oriented x3 HEENT Other: 1 cm Laceration at scalp/top of R ear not conducive to sutures. Bleeding is controlled. He has 2 smaller laceration/abrasions on R earlobe Head: Yes normocephalic and Yes atraumatic Eyes General: appearance normal, both eyes and all related structures Pupils: Equal, round and reactive pupils present EOM: EOMs intact bilaterally Resp Effort & Inspection: normal respiratory effort Neuro General: patient oriented x3 and gait normal Cranial nerves: Yes Equal, round and reactive pupils present Psych Affect: normal affect Immunizations Boostrix Tdap 2.5 Lf unit-8 mcg-5 Lf/0.5 mL intramuscular syringe Performing Provider: Gus Odom MD [facility] Administered by: Marie Webb CMA on 05/22/24 13:19 Dose Route Admin Location Dispensed Lot Number Expiration Date NDC P D Driver 0.5 mL IM Left Deltoid 0.5 mL [id number] 06/23/26 [id number] [id number] VIS Given Date VIS Provided VIS Publication Date 05/22/24 Single Vaccine 21 Eligibility Eligibility Date Funding Source Not [facility] Eligible 05/22/24 Private Assessment & Plan Assessment & Plan (1) Laceration of ear region: Code(s): S01.319A - Laceration without foreign body of unspecified ear, initial encounter Plan: 1 cm Laceration at scalp/top of R ear not conducive to sutures. Bleeding is controlled. Cleaned region and Applied cyanotic relate glue He has 2 smaller laceration/abrasions on R earlobe which do not require any closure. He can apply bacitracin ointment to these. Will give him a script for cephalexin He does not know when his last tetanus shot was so he will receive this as well. Advised to watch for any increased redness, swelling, pain or drainage. Coding Level of Care Code Est Pt Level 3 (60324) Diagnoses Laceration of ear region S01.319A
== END 2024-05-22 13:41 | disposition home or self-care (01) ==
LOC: HO.HMCWIC 11:01
PROVIDERS: PCP Nurse Practitioner Family; Visit Provider Family Medicine
DX: S01.311A Laceration without foreign body of right ear, initial encounter (principal); Z04.2 Encounter for examination and observation following work accident

== ENCOUNTER → 2024-05-22 11:01 | Outpatient (BNVA) | payer BC, SELFPAY | PROVIDERS: PCP Nurse Practitioner Family; Visit Provider Family Medicine | DX: S01.311A Laceration without foreign body of right ear, initial encounter (principal); Z23 Encounter for immunization; X58.XXXA Exposure to other specified factors, initial encounter; Y93.9 Activity, unspecified; Y92.9 Unspecified place or not applicable; Y99.9 Unspecified external cause status | CPT/HCPCS: 12011; 90471; 90715 ==

== ENCOUNTER 2024-08-30 14:08 | Outpatient (AMB) | payer BC, SELFPAY ==
[2024-08-30 14:13] VITALS: BP 134/78; PULSE 80; O2SAT 96; BMI 40.5
--- NOTE | 2024-08-30 14:13 | MHC.PC.OV ---
Vital Signs 08/30/24 14:13 Height 6 ft 3 in Weight 324 lb BMI 40.5 BP 134/78 Blood Pressure Location Lt brachial Position Sitting Pulse 80 Pulse Source Pulse Oximeter Pulse Oximetry (%) 96 Oxygen Delivery Method Room Air Intake Visit Reasons: PE Respiratory Therapist Required: No Accompanied by: Self / Same As Patient Allergies penicillin V Allergy (Severe, Verified 08/30/24 14:35) anaphylaxis, swelling Medication List - Last Reconciled 08/30/24 by IGOR RealP- atorvastatin 20 mg PO DAILY hydrochlorothiazide 12.5 mg PO DAILY 90 days lisinopril 10 mg PO DAILY 90 days meloxicam 15 mg PO .prn PRN 30 days sildenafil (Viagra) 100 mg PO DAILY PRN Tobacco use date assessed: 08/30/24 Dental Screening Dental Screen Date: 08/30/24 Did you have a dental visit in the last 12 months?: Yes Did you have a dental problem in the last 6 months where you did not have access to dental care?: No Was dental information given to patient?: Patient has dentist HPI PE HPI Details History of Present Illness The patient is a 59-year-old male presenting for a wellness visit. He reports being in good health, with an active lifestyle. He denies any recent symptoms such as chest pain, shortness of breath, gastrointestinal or urinary issues. He has noted the presence of seborrheic keratosis spots on his back and torso but continues to manage these with a commercial review appraiser's care. He declined the digital rectal exam today, opting to proceed with a PSA test instead, and his colon cancer screenings are current. Health Maintenance - Regular dermatology follow-ups for skin care - PSA test planned - Colon cancer screening up to date Social History - Engages in physical and mental activities regularly - Following a managed diet Review of Systems -denies any fevers, chills - Cardiac: Denies chest pain or shortness of breath - Gastrointestinal: Denies constipation, diarrhea, or blood in stool - Genitourinary: Denies urinary issues -denies depression/anxiety, denies any si or hi Physical Exam General: Cooperative, healthy appearing, comfortable, no acute distress and well developed,obese Orientation: Patient oriented x3 Limitations: No limitations Head: Normal to inspection Ears: Hearing grossly normal bilaterally Nose: Normal external nose present Face and sinus: Normal facial exam Eyes: Appearance normal, both eyes and all related structures Neck: Normal visual inspection and Yes full ROM Respiratory: Normal respiratory effort and able to speak in complete sentences. Clear to auscultation bilaterally Cardiovascular: Regular rate and rhythm. Normal S1 and S2 GI: Normal to inspection. Soft to palpation and nontender Skin: Several seborrheic keratosis spots noted, especially on the back and some on the anterior chest/abd Neuro: Patient oriented x3 Extremities: Normal to inspection Results Plan The patient's decision to proceed with a PSA test instead of a digital rectal exam is noted, and he is advised to maintain his proactive approach to health screenings. His regular appointments with a commercial review appraiser ensure ongoing management of his seborrheic keratosis. The patient's emphasis on staying active and maintaining a healthy diet is encouraging, and he should continue these efforts as they greatly contribute to his overall health. Discussion Notes I discussed with the patient the importance of regular screenings, including the PSA test he plans to have, as part of his preventative health strategy. We talked about the role of physical and dietary habits in maintaining wellness. The risks and benefits of the digital rectal exam were explained, and his choice to defer it was respected. I emphasized his continued adherence to a proactive healthcare approach, especially with his dermatological follow-up. We also affirmed that he feels well and is managing his lifestyle effectively. Patient Instructions - Proceed with the plan to obtain a PSA test - Continue regular dermatology follow-ups - Maintain current levels of physical activity and dietary management - Stay informed on health screenings and their benefits [facility] Medical History CAD (coronary artery disease) Diverticulosis Impacted cerumen of both ears Arthritis of left knee Hypertension Surgical History H/O colonoscopy History of esophagogastroduodenoscopy (EGD) H/O umbilical hernia repair (01/30/22) History of Achilles tendon repair History of medial meniscus repair of left knee History of tonsillectomy History of arthroplasty of left ankle History of hand surgery H/O medial meniscus repair of right knee Family History Father Kidney failure DM type 2 (diabetes mellitus, type 2) Mother Alzheimer dementia Social History Housing: House Alcohol intake: current Alcohol intake frequency: holidays/special occasions only Patient Tobacco Use Status: Never used Tobacco e-Cigarette/Vaping Use: Never Used Second Hand Smoke Exposure: No service: Yes Current occupational status: employed Current occupation: [employer] Current occupational exposures/hazards: Yes Cognitive needs: No Hearing needs: No Vision needs: No Questionnaire PHQ-9 Over the last 2 weeks, how often have you been bothered by any of the following problems? 1. Little interest or pleasure in doing things: not at all 2. Feeling down, depressed, or hopeless: not at all 3. Trouble falling or staying asleep, or sleeping too much: not at all 4. Feeling tired or having little energy: not at all 5. Poor appetite or overeating: not at all 6. Feeling bad about yourself - or that you are a failure or have let yourself or your family down: not at all 7. Trouble concentrating on things, such as reading the newspaper or watching television: not at all 8. Moving or speaking so slowly that other people could have noticed. Or the opposite - being so fidgety or restless that you have been moving around a lot more than usual: not at all 9. Thoughts that you would be better off or of hurting yourself in some way: not at all Total score: 0 Depression Screening Interpretation: Negative Depression Screening Done: Yes 28496 - PHQ-9 Billing: Yes Source: Developed by Drs. Abundio Michael, Rachel Rojas, Tom Peoples and colleagues, with an educational jovanny from [employer]. Thrive Questionnaire Date Thrive assessed: 08/30/24 I am a: Patient What is your living situation today?: I have a steady place to live Within the past 12 months, did the food you bought not last and you didn't have the money to get more?: Never true Within the past 12 months, did you worry whether your food would run out before you got money to buy more?: Never true Do you have trouble paying for medicines?: No Do you have trouble getting transportation to medical appointments?: No Do you have trouble paying your heating and electricity bill?: No Do you have trouble taking care of your child, family member or friend?: No Do you have trouble with day-to-day activities such as bathing, preparing meals, shopping, managing finances, etc.?: No Are you currently unemployed and looking for a job?: No Are you interested in more education?: No Please select the resources that you would like help with: None Currently or been in a relationship where the following occur: No concerns reported THRIVE Score: 0 AUDIT C Alcohol Use Questionnaire (AUDIT-C) 1. How often do you have a drink containing alcohol?: Monthly or less 2. How many drinks containing alcohol do you have on a typical day when you are drinking?: 5 or 6 3. How often do you have six or more drinks on one occasion?: Less than monthly Total Score: 4 Score Reviewed/Action Taken: Yes KALEY-7 AMB Questionnaire KALEY-7 Date KALEY - 7 assessed: 08/30/24 Feeling nervous, anxious, or on edge: 0 = Not at all Not being able to stop or control worryin = Not at all Worrying too much about different things: 0 = Not at all Trouble relaxin = Not at all Being so restless that it is hard to sit still: 0 = Not at all Becoming easily annoyed or irritable: 0 = Not at all Feeling afraid as if something awful might happen: 0 = Not at all Total KALEY-7 score (0-4 normal; 5-9 mild; 10-14 moderate; 15-21 severe): 0 Source: Developed by Drs. Abundio Michael, Rachel Rojas, Tom Peoples and colleagues, with an educational jovanny from [employer]. KALEY-7 Assessment Billing KALEY-7 Assessment Tool: KALEY-7 Assessment 14523 Physical exam (Primary Care) Vital Signs: Last Vital Signs Pulse 80 08/30/24 14:13 BP 134/78 08/30/24 14:13 Pulse Ox 96 08/30/24 14:13 Oxygen Delivery Method Room Air 08/30/24 14:13 BMI result Body Mass Index 40.5 Tobacco/Smoking Status: Tobacco use Status Tobacco use date assessed 08/30/24 08/30/24 14:15 Patient Tobacco Use Status Never used Tobacco 08/30/24 14:15 e-Cigarette/Vaping Use Never Used 08/30/24 14:15 PHQ-9: PHQ-9 Score PHQ-9: Total score 0 08/30/24 14:24 Depression Screening Interpretation: Negative Thrive Assessment: Date of Thrive Assessment Date Thrive assessed 08/30/24 08/30/24 14:15 Currently or been in a relationship where the following occur: No concerns reported Coding Level of Care Code Est Pt Prev Care 40-64y(78677) Diagnoses Physical exam Z00.00 Screening PSA (prostate specific antigen) Z12.5 Additional Codes KALEY-7 Assessment Billing - KALEY-7 Assessment Tool: KALEY-7 Assessment 67630 ([id number]) PHQ-9 - 01813 - PHQ-9 Billing: Yes ([id number]) Assessment & Plan Assessment & Plan (1) Physical exam: Code(s): Z00.00 - Encounter for general adult medical examination without abnormal findings Category: Medical (2) Screening PSA (prostate specific antigen): Code(s): Z12.5 - Encounter for screening for malignant neoplasm of prostate Category: Medical Plan . Orders: Orders Complete Blood Count Auto Diff Today Z00.00 - Encounter for general adult medical examination without abnormal findings Comprehensive [place]. Panel Fast Today Z00.00 - Encounter for general adult medical examination without abnormal findings TSH reflex Free T4 Today Z00.00 - Encounter for general adult medical examination without abnormal findings Lipid Panel Today Z00.00 - Encounter for general adult medical examination without abnormal findings UA CC w/rflx Micro + Cult Today Z00.00 - Encounter for general adult medical examination without abnormal findings Prostate Specific Antigen Scr Today Z12.5 - Encounter for screening for malignant neoplasm of prostate
== END 2024-08-30 14:43 | disposition home or self-care (01) ==
LOC: HO.HMCC 14:09
PROVIDERS: PCP Nurse Practitioner Family; Visit Provider Nurse Practitioner Family
DX: Z00.00 Encounter for general adult medical examination without abnormal findings (principal); Z12.5 Encounter for screening for malignant neoplasm of prostate

== ENCOUNTER → 2024-08-30 14:08 | Outpatient (BNVA) | payer BC, SELFPAY | PROVIDERS: PCP Nurse Practitioner Family; Visit Provider Nurse Practitioner Family | DX: Z00.00 Encounter for general adult medical examination without abnormal findings (principal) | CPT/HCPCS: 96127 ==

== ENCOUNTER 2024-12-13 09:40 | Outpatient (REF) | payer BC, SELFPAY ==
[2024-12-13 13:56] LABS: MANUAL DIFF FLAG NO
[2024-12-13 14:07] LABS: Appearance Urine Clear; Glucose Urine UA Negative (Negative); PH 5.5 (5.0-9.0); Specific Gravity - Urine 1.025 (1.005-1.025)
[2024-12-13 14:09] LABS: Hematocrit 41.7 % (42.0-52.0); Hemoglobin 14.1 g/dl (14.0-18.0); Imm Gran Abs Auto 0.03 X10*3/uL (0.00-0.03); Imm Gran Pct Auto 0.5 % (0.0-0.4); Lymphocytes Absolute Auto 2.1 X10*3/uL (1.2-4.9); Mean Corpuscular HGB Conc 33.8 g/dl (31.0-36.0); Mean Corpuscular Hemoglobin 30.5 pg (27.0-33.0); Mean Corpuscular Volume 90.1 fL (80.0-98.0); NRBC Abs Auto 0.000 X10*3/uL (0.0-0.012); NRBC Pct Auto 0.0 /100WBC (0.0-0.2); Platelet Count 286 X10*3/uL (160-400); Red Blood Count 4.63 X10*6/uL (4.60-5.80); White Blood Count 6.6 X10*3/uL (4.8-10.8)
[2024-12-13 14:44] LABS: Alanine Aminotransferase 17 U/L (0-40); Albumin Level 4.3 g/dL (3.5-5.0); Alkaline Phosphatase 109 U/L (39-117); Anion Gap 12 (12-20); Aspartate Amino Transferase 23 U/L (5-37); Blood Urea Nitrogen 18 mg/dL (9-16); Calcium 9.2 mg/dL (8.4-10.2); Carbon Dioxide 24 mmol/L (22-29); Chloride 109 mmol/L (96-108); Cholesterol 179 mg/dL (<200); Estimated Glomerular Filt Rate > 60; HDL Cholesterol 37 mg/dL (>40); Potassium 4.2 mmol/L (3.3-5.1); Sodium 141 mmol/L (135-145); Total Protein 6.7 g/dL (6.5-8.0); Triglycerides 156 mg/dL (<150)
== END 2024-12-13 09:41 | disposition home or self-care (01) ==
LOC: HO.HMGCLDS 09:40
PROVIDERS: PCP Nurse Practitioner Family; Visit Provider Nurse Practitioner Family
DX: Z00.00 Encounter for general adult medical examination without abnormal findings (principal); Z12.5 Encounter for screening for malignant neoplasm of prostate
CPT/HCPCS: 36415; 80053; 80061; 81003; 84153; 84443; 85025

== ENCOUNTER 2025-02-22 10:52 | Outpatient (REF) | payer BC, SELFPAY ==
[2025-02-22 13:49] LABS: Prostate Specific Antigen 0.92 ng/mL (<0.05-4.0)
[2025-02-22 14:01] LABS: Uric Acid 7.8 mg/dL (3.4-7.0)
== END 2025-02-22 10:53 | disposition home or self-care (01) ==
LOC: HO.HMGCLDS 10:52
PROVIDERS: Nurse Practitioner Family; PCP Nurse Practitioner Family; Visit Provider Internal Medicine
DX: M10.071 Idiopathic gout, right ankle and foot (principal); N40.0 Benign prostatic hyperplasia without lower urinary tract symptoms; Z12.5 Encounter for screening for malignant neoplasm of prostate; R10.31 Right lower quadrant pain; R10.32 Left lower quadrant pain
CPT/HCPCS: 36415; 84153; 84550

== ENCOUNTER 2025-02-22 10:52 | Outpatient (AMB) | payer BC, SELFPAY ==
--- NOTE | 2025-02-22 11:31 | AM.OFFWIN_ITS ---
Intake Vital Signs 02/22/25 11:34 Height 6 ft 3 in BP 140/90 H Blood Pressure Location Lt brachial Position Sitting Respiration 16 Pulse 81 Pulse Source Pulse Oximeter Temp 97.5 F Temp Source Oral Pulse Oximetry (%) 94 Oxygen Delivery Method Room Air Intake Visit Reasons: EP gout on right foot/ pain Patient Tobacco Use Status: Never used Tobacco Allergies penicillin V Allergy (Severe, Verified 02/22/25 11:35) anaphylaxis, swelling Medication List - Last Reconciled 02/22/25 by Glenn Reynoso MD atorvastatin 20 mg PO DAILY hydrochlorothiazide 12.5 mg PO DAILY 90 days lisinopril 10 mg PO DAILY 90 days meloxicam 15 mg PO .prn PRN 30 days sildenafil (Viagra) 100 mg PO DAILY PRN HPI EP gout on right foot/ pain HPI Details History of Present Illness The patient is a 59-year-old male presenting with recurrent gout episodes. Gout: - First episode occurred on January 10 or , affecting the right foot, specifically the big toe. - Severe pain during the first episode t hat impaired walking. - The patient sought urgent care while o n vacation at [facility] and was prescribed indomethacin and prednisone. - Recurrence noted on February 06 with milder symptoms. - Received indomethacin from urgent care ; took the medication as directed twice daily, with symptoms resolving after five days. - Recent episode over the weekend with m ild symptoms; self-administered remaining indomethacin. - Diet high in red meat and fish noted a s possible trigger. - Uric acid level discussed for future a ssessment and management. Medical History: - History of gout. Medications: - Indomethacin 50 mg: Taken for episodes of gout. - Prednisone: Previously prescribed for gout episodes. Social History: - Recently purchased a property on [facility]. - Diet includes a high intake of red elliott t and fish. Problem List - Gout Patient Instructions - Proceed with uric acid testing next do or. - calender wind up helper prescribed indomethacin medica tion. - Follow up for further management based on uric acid levels. - Maintain a diet low in purines to help manage gout symptoms. 3 pm Uric acid level came back at 7.5 Patient was notified, at this point I would recommend to control the diet and push fluids rather than starting allopurinol Review of Systems - General: No fever no chills - Neurological: No headaches no dizziness - Ear nose throat: No sore throat no hearing difficulty no ear pain - Cardiovascular: No syncope, no chest pain, no palpitations - Gastrointestinal: No nausea vomiting or diarrhea Physical Exam General: No acute distress HEENT: No acute findings Neck: Supple Respiratory system: Able to talk in full sentences, no audible wheeze Gastrointestinal: No pain Extremities: Pain in the right big toe, with mild swelling pain with movement SENIOR MANUFACTURING ENGINEER: Alert awake oriented x3 motor intact Skin: Normal turgor Patient was informed and verbally consented to the use of an ambient scribe for clinic note documentation during this visit. [facility] Medical History CAD (coronary artery disease) Diverticulosis Impacted cerumen of both ears Arthritis of left knee Hypertension Surgical History H/O colonoscopy History of esophagogastroduodenoscopy (EGD) H/O umbilical hernia repair (01/30/22) History of Achilles tendon repair History of medial meniscus repair of left knee History of tonsillectomy History of arthroplasty of left ankle History of hand surgery H/O medial meniscus repair of right knee Family History Father Kidney failure DM type 2 (diabetes mellitus, type 2) Mother Alzheimer dementia Social History Housing: House Alcohol intake: current Alcohol intake frequency: holidays/special occasions only Patient Tobacco Use Status: Never used Tobacco e-Cigarette/Vaping Use: Never Used Second Hand Smoke Exposure: No service: Yes Current occupational status: employed Current occupation: [employer] Current occupational exposures/hazards: Yes Cognitive needs: No Hearing needs: No Vision needs: No Physical Exam Vital Signs: Last Vital Signs Temp 97.5 F 02/22/25 11:34 Pulse 81 02/22/25 11:34 Resp 16 02/22/25 11:34 BP 140/90 H 02/22/25 11:34 Pulse Ox 94 02/22/25 11:34 Oxygen Delivery Method Room Air 02/22/25 11:34 Assessment & Plan Assessment & Plan (1) Gout attack: Code(s): M10.9 - Gout, unspecified Qualifiers: Gout site: toe Laterality: right Gout etiology: idiopathic Qualified Code(s): M10.071 - Idiopathic gout, right ankle and foot Plan History of Present Illness The patient is a 59-year-old male presenting with recurrent gout episodes. Gout: - First episode occurred on January 10 or , affecting the right foot, specifically the big toe. - Severe pain during the first episode that impaired walking. - The patient sought urgent care while on vacation at [facility] and was prescribed indomethacin and prednisone. - Recurrence noted on February 06 with milder symptoms. - Received indomethacin from urgent care; took the medication as directed twice daily, with symptoms resolving after five days. - Recent episode over the weekend with mild symptoms; self-administered remaining indomethacin. - Diet high in red meat and fish noted as possible trigger. - Uric acid level discussed for future assessment and management. Medical History: - History of gout. Medications: - Indomethacin 50 mg: Taken for episodes of gout. - Prednisone: Previously prescribed for gout episodes. Social History: - Recently purchased a property on [facility]. - Diet includes a high intake of red meat and fish. Problem List - Gout Patient Instructions - Proceed with uric acid testing next door. - calender wind up helper prescribed indomethacin medication. - Follow up for further management based on uric acid levels. - Maintain a diet low in purines to help manage gout symptoms. 3 pm Uric acid level came back at 7.5 Patient was notified, at this point I would recommend to control the diet and push fluids rather than starting allopurinol Orders: Orders Uric Acid Today M10.9 - Gout, unspecified Medications: New indomethacin administer with food or milk 50 mg PO BID PRN 60 caps 0RF Gout 30 days Discontinued meloxicam Discontinued Reason: Doctor's Order 15 mg PO .prn 30 days PRN 30 tabs 0RF pain R10.31 - Right lower quadrant pain, R10.32 - Left lower quadrant pain Coding Level of Care Code Est Pt Level 4 (68784) Diagnoses Acute idiopathic gout involving toe of right foot M10.071 Gout site: toe Laterality: right Gout etiology: idiopathic Time Spent (min) 30 Comment Follow-up lab provided
[2025-02-22 11:34] VITALS: BP 140/90; PULSE 81; RESP 16; TEMP 36.4; O2SAT 94
--- OUTSIDE RECORDS SUMMARY | 2025-02-22 13:22 | XMS_ITS | Clinical Summary ---
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 Not on whitney e 09/27/2022 Are you concerned about learning? Not on file 09/27/2022 No 09/27/2022 No 09/27/2022 Digital Access Answer Date Recorded No 10/28/2022 No 10/28/2022 No 10/28/2022 Reliable internet access at home? Not on file 10/28/2022 Device with a working camera? Not on file Sex and Gender Information Value Date Recorded Sex Assigned at Not on file Legal Sex Male 3:42 PM EDT Gender Identity Not on file Sexual Orientation Not on file Plan of Treatment Health Maintenance Due Date Last Done Comments Adult Td,Tdap Booster 1967 LIPID PANEL 1967 DEPRESSION SCREENING 1979 SMOKING Hx and SMOKELESS TOBACCO SCREENING 1980 HEPATITIS C SCREENING 1985 HIV ONE-TIME SCREENING (18-65 YEARS) 1985 COLOGUARD 2012 COLONOSCOPY 2012 COLORECTAL CANCER SCREENING 2012 FIT TEST 2012 FOBT 2012 SIGMOIDOSCOPY 2012 VIRTUAL COLONOSCOPY 2012 PNEUMOCOCCAL VACCINES (50+ years) (1 of 1 - PCV) 2017 ZOSTER VACCINES (2 of 2) 12/21/2020 10/26/2020 COVID-19 VACCINE (2 - 2023- season) 2024 12/08/2020 INFLUENZA VACCINE (#1) 2024 , 08/17/2019, 07/06/2018, Additional history exists HEPATITIS A VACCINES Aged Out No long er eligible based on patient's age to complete this topic HIB VACCINES Aged Out No longer eligi ble based on patient's age to complete this topic MENINGOCOCCAL VACCINES (ACWY) Aged Out No longer eligible based on patient's age to complete this topic MENINGOCOCCAL VACCINES (B) Aged Out N o longer eligible based on patient's age to complete this topic Medical Devices Not on file Insurance [place] [address] [place] [address] [place] [address] [place] [address] [place] [address] [place] [address] [place] [address] [place] [address] [place] [address] [place] [address] [place] [address] HMO POS Care Teams Fiber Product Cutting Machine Operator Relationship Specialty Start Date End Date Unknown, Unknown, PCP - General 11/07/15 Additional Source Comments The information contained in this document represents components of the legal health record. It is not the complete legal health record.[facility]
== END 2025-02-22 12:01 | disposition home or self-care (01) ==
PROVIDERS: PCP Nurse Practitioner Family; Visit Provider Internal Medicine
DX: M10.071 Idiopathic gout, right ankle and foot (principal)

== ENCOUNTER 2025-04-21 15:17 | Outpatient (AMB) | payer BC, SELFPAY ==
--- NOTE | 2025-04-21 15:17 | MHC.OFFVIS ---
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 Ma. He has a past medical history of bilateral arthritis of knees and hypertension. He is being followed up on today via telehealth for his history of left-sided groin pain, scrotal pain, and ED. In discussion with the patient today he reports to be doing and feeling well. He denies having had any bothersome urinary issues or concerns since his last office visit here over a year ago. Most recent PSA results reviewed with the patient today as noted and trended below: PSA: 11/20 0.7, 05/24 0.9, 12/24 0.9, 02/24 0.9 He denies having had any scrotal pain and or issues maintaining his erections. Previous workup has included a scrotal ultrasound 06/25 noting no findings to explain symptoms of testicular pain. 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 He has a history of having a vasectomy approximately 20 years ago at [facility]. He currently denies any bothersome urinary issues or concerns. denies urinary urgency, urinary frequency, incontinence, nocturia, hematuria, dysuria, foul smelling urine, changes to urinary stream, flank pain, fever, and or chills. He is happy with his current voiding parameters. He reports to be happy with his maintaining and obtaining of erections with p.r.n. Viagra. We did discussed at length lifestyle modifications to assist with erectile dysfunction. All questions were answered. He otherwise offers no other issues or concerns at this time. [facility] Medical History CAD (coronary artery disease) Diverticulosis Impacted cerumen of both ears Arthritis of left knee Hypertension Surgical History H/O colonoscopy History of esophagogastroduodenoscopy (EGD) H/O umbilical hernia repair (01/30/22) History of Achilles tendon repair History of medial meniscus repair of left knee History of tonsillectomy History of arthroplasty of left ankle History of hand surgery H/O medial meniscus repair of right knee Family History Father Kidney failure DM type 2 (diabetes mellitus, type 2) Mother Alzheimer dementia Social History Housing: House Alcohol intake: current Alcohol intake frequency: holidays/special occasions only Patient Tobacco Use Status: Never used Tobacco e-Cigarette/Vaping Use: Never Used Second Hand Smoke Exposure: No service: Yes Current occupational status: employed Current occupation: [employer] Current occupational exposures/hazards: Yes Cognitive needs: No Hearing needs: No Vision needs: No Review of Systems Const All systems reviewed & are unremarkable except as noted in HPI and below Physical Exam Const General: cooperative, healthy appearing, comfortable, no acute distress, well developed, alert and awake Orientation/consciousness: patient oriented x3 Resp Effort & Inspection: normal respiratory effort and able to speak in complete sentences Neuro General: patient oriented x3 Psych Appearance: grossly normal and well kempt Speech and movement: Clear speech present Affect: normal affect Attitude: cooperative Thought content: Normal thought content present Insight: Fair insight present (Psych) Judgement: Fair judgement present (Psych) Telehealth Telehealth Telehealth Platform: Telephone Location of provider rendering services: practice address Location of patient: address on file Patient Identification confirmed using: Name, : Yes Telehealth method: video Patient verbally consented to treatment: Yes Patient verbally consented to billing insurance company: Yes Patient informed of any privacy concerns related to visit: Yes Minutes spent on Phone/Video with Pt.: 15 Assessment & Plan Assessment & Plan (1) Screening PSA (prostate specific antigen): Code(s): Z12.5 - Encounter for screening for malignant neoplasm of prostate Category: Medical (2) Erectile dysfunction: Code(s): N52.9 - Male erectile dysfunction, unspecified Category: Medical Plan Most recent PSA results reviewed with the patient today; as noted above. Patient currently denies any bothersome urinary issues or concerns. He reports be happy with current voiding parameters. Will continue with surveillance monitoring. All questions were answered. Will obtain PSA in 1 year. Follow-up in 1 year with PSA; or sooner with any issues, concerns, and or questions. Orders: Orders Prostate Specific Antigen 1 Year N52.9 - Male erectile dysfunction, unspecified, Z12.5 - Encounter for screening for malignant neoplasm of prostate Patient Instructions: The patient had an opportunity to ask questions regarding the treatment plan. All questions were answered. Physical exam, labs, and imaging were discussed and reviewed in detail. As well as risks, benefits, and discussion of treatment choices. No major barriers to understanding were identified. The patient expressed understanding and agreement with the above treatment plan. The patient was made aware they should contact our office by phone for worsening of their current condition, the appearance of new symptoms, or with any questions or concerns. Compliance is encouraged with any medications and follow up testing that is ordered. It is a privilege to be allowed the opportunity to participate in? your urological care.? Again, if you have any questions or concerns If you have any questions or concerns please do not hesitate to contact me. The office is [phone]. This note is constructed using voice recognition software. While every effort has been made to ensure accuracy drawer in jacquard loom errors may have been included. Yours sincerely, XIMENA Martines Coding Level of Care Code Tele Est Pt Level 3 (85311) Diagnoses Screening PSA (prostate specific antigen) Z12.5 Erectile dysfunction N52.9
--- OUTSIDE RECORDS SUMMARY | 2025-04-21 20:32 | XMS_ITS | Clinical Summary ---
Author Organization [facility] Address [address] [place] [phone] Phone Care Team Providers Care Fence Post Driver Name Role Phone Unknown, Unknown Primary Care [...] ZOSTER VACCINES (2 of 2) 12/21/2020 10/26/2020 INFLUENZA VACCINE (#1) 2024 0, 08/17/2019, 07/06/2018, Additional history exists COVID-19 VACCINE (2 - 2024- season) 2025 12/08/2020 RSV VACCINE (1 - 1-dose 75+ series) 2042 HEPATITIS A VACCINES Aged Out No long [...] topic Medical Devices Not on file Insurance [facility] HMO POS [facility] HMO POS [facility] [place] [address] [place] [address] [place] [address] HMO POS [facility] [place] [address] [place] [address] [place] [address] [place], [place] [id number] POS Member Subscriber Plan / Payer (Ef fective 2014-Present) Name:Etelvina Fournier Relation to Subscriber:Self Name:ETELVINA FOURNIER Payer ID:[id number] (NAIC) Type:HMO Address: [facility] [id number] [place] [id number] Care Teams Fence Post Driver Relationship Specialty Start Date End Date Unknown, Unknown, PCP - General 11/07/15 Additional Source Comments The information contained in this document represents components of the legal health record. It is not the complete legal health record.[facility]
== END 2025-04-21 16:17 | disposition home or self-care (01) ==
LOC: HO.HUSH 15:17
PROVIDERS: PCP Nurse Practitioner Family; Visit Provider Nurse Practitioner Family
DX: N52.9 Male erectile dysfunction, unspecified (principal); Z12.5 Encounter for screening for malignant neoplasm of prostate
CPT/HCPCS: 99213

== ENCOUNTER 2025-05-09 08:40 | Outpatient (REF) | payer BC, SELFPAY ==
--- NOTE | ~2025-05-09 | XR_ITS ---
EXAMINATION: XR KNEE, RIGHT CLINICAL INFORMATION: M25.561 - Pain in right knee COMPARISON: June 28, 2022. TECHNIQUE: AP view [position both knees. Lateral and sunrise views of the right knee. FINDINGS: Joint space narrowing involving mostly the medial compartments. Sclerosis along the articular surfaces pronounced in the medial tibial plateau and medial femoral condyle both right greater than the left knee. Focal irregularity in the medial femoral condyle with facet is sclerosis. Soft tissue calcifications in the menisci, both knees. No gross suprapatellar bursa joint effusion. No lytic or blastic lesions. XR/XR knee RT 3V IMPRESSION: Tricompartmental osteoarthrosis/osteoarthritis involving mostly the medial compartments of both knees. Posterior CPPD. Electronically signed by: Marc Villar MD 05/09/2025 10:15 AM NARCISO CORMIER
== END 2025-05-09 08:41 | disposition home or self-care (01) ==
LOC: HO.HOSX 08:40
PROVIDERS: Visit Provider Orthopaedic Surgery
DX: M17.11 Unilateral primary osteoarthritis, right knee (principal)
CPT/HCPCS: 73562

== ENCOUNTER 2025-05-09 09:53 | Outpatient (AMB) | payer BC, SELFPAY ==
--- NOTE | 2025-05-09 10:02 | A.OFFVIS_ITS ---
Intake Visit Reasons: OV - Right Knee OA Intake Note: Maciel is a 59 year old male who presents today for a follow up of his right knee OA. History of PRP that was helpful for about 3 months. At his last visit we discussed TKA and he was booked for December of 2023, but he cancelled surgery as his pain was improving. Currently he reports that previous PRP injections combined with Gel injections was very helpful for him for about 1 year. He has recently had returning pain and would like to discuss repeating PRP with Gel .VS. TKA. He reports a recent onset of left knee pain that is not severe. He is interested in trying cortisone injections in this knee. Allergies penicillin V Allergy (Severe, Verified 05/09/25 10:09) anaphylaxis, swelling HPI HPI OV - Right Knee OA: Details: Maciel is a 59 year old male who presents today for a follow up of his right knee OA. History of PRP that was helpful for about 3 months. At his last visit we discussed TKA and he was booked for December of 2023, but he cancelled surgery as his pain was improving. Currently he reports that previous PRP injections combined with Gel injections was very helpful for him for about 1 year. He has recently had returning pain and would like to discuss repeating PRP with Gel .VS. TKA. He reports a recent onset of left knee pain that is not severe. He is interested in trying cortisone injections in this knee. [facility] Medical History (Reviewed 04/21/25 @ 16:11 by Kyung Kearns [facility]) CAD (coronary artery disease) Diverticulosis Impacted cerumen of both ears Arthritis of left knee Hypertension Surgical History H/O colonoscopy History of esophagogastroduodenoscopy (EGD) H/O umbilical hernia repair (01/30/22) History of Achilles tendon repair History of medial meniscus repair of left knee History of tonsillectomy History of arthroplasty of left ankle History of hand surgery H/O medial meniscus repair of right knee Family History Father Kidney failure DM type 2 (diabetes mellitus, type 2) Mother Alzheimer dementia Social History Housing: House Alcohol intake: current Alcohol intake frequency: holidays/special occasions only Patient Tobacco Use Status: Never used Tobacco e-Cigarette/Vaping Use: Never Used Second Hand Smoke Exposure: No service: Yes Current occupational status: employed Current occupation: [employer] Current occupational exposures/hazards: Yes Cognitive needs: No Hearing needs: No Vision needs: No Physical Exam Exam Exam: varus alignment bilateral knees tenderness to palpation medial joint line that is mild. Mildly antalgic gait. 5 degree loss of terminal extension. Results Reviewed Results Reviewed: I personally reviewed relevant radiographs. Moderate to severe by lateral tricompartmental osteoarthritis involving medial compartment most significantly. Assessment & Plan Assessment & Plan (1) Osteoarthritis of right knee: Code(s): M17.11 - Unilateral primary osteoarthritis, right knee Category: Medical Plan: 59-year-old with bilateral knee osteoarthritis right is more bothersome left. He had a PRP injection in the right knee about 18 months ago in his was very helpful. He would like to repeat this. I sent a referral to Dr. Lancaster. Orders: Orders XR knee RT 3V Today M25.561 - Pain in right knee Referrals Pain Management Referral M17.11 - Unilateral primary osteoarthritis, right knee Coding Level of Care Code Est Pt Level 3 (45797) Diagnoses Osteoarthritis of right knee M17.11
== END 2025-05-09 10:38 | disposition home or self-care (01) ==
LOC: HO.HOS 09:54
PROVIDERS: PCP Nurse Practitioner Family; Visit Provider Orthopaedic Surgery
DX: M17.11 Unilateral primary osteoarthritis, right knee (principal)
CPT/HCPCS: 99213

== ENCOUNTER → 2025-05-09 09:56 | Outpatient (BNV) | payer BC, SELFPAY | PROVIDERS: Visit Provider Radiology Diagnostic Radiology | DX: M17.11 Unilateral primary osteoarthritis, right knee (principal) | CPT/HCPCS: 73562 ==